=== PATIENT | male | born 1980 | race Caucasian/White ===

== ENCOUNTER 2022-08-21 16:42 | Emergency (ER) | payer OTHER, SELFPAY ==
--- NOTE | ~2022-08-21 | CT_ITS ---
EXAMINATION: NONCONTRAST HEAD CT NONCONTRAST CERVICAL SPINE CT INDICATION INFORMATION: Pain status post fall COMPARISON: None TECHNIQUE: Separate noncontrast CT examinations of the head and cervical spine were performed. Coronal and sagittal images were created for each examination at the technologist workstation. This CT examination was performed using dose optimization techniques as appropriate, variously including the following: *Automated exposure control *Adjustment of mA and/or kV according to patient size (this includes techniques or standardized protocols for targeted exams where dose is matched to indication/reason for exam; i.e. extremities or head) *Use of iterative reconstruction technique DLP: 965 mGy-cm FINDINGS: HEAD: No intra or extra-axial fluid collection, hemorrhage, or mass. No ventriculomegaly. No midline shift or herniation. Basal cisterns are patent. Torres-white matter differentiation is maintained. No territorial encephalomalacia. No significant volume loss. There is no abnormal attenuation within the brain parenchyma. No calvarial fracture or soft tissue abnormality. The mastoid air cells and visualized portions of the paranasal sinuses are well aerated. CERVICAL SPINE: Alignment: Normal. No subluxation. Vertebra: No acute fracture. No prevertebral soft tissue swelling. Degenerative disc disease: No significant. Preserved intervertebral disc heights. Other findings: No cervical lymphadenopathy. Visualized major salivary glands and thyroid gland are unremarkable. Visualized lung apices are clear. CT/CT head/brain wo IV con IMPRESSION: 1. No intracranial hemorrhage or calvarial fracture. 2. No traumatic subluxation or acute cervical spine fracture.
--- NOTE | ~2022-08-21 | CT_ITS ---
EXAMINATION: NONCONTRAST HEAD CT NONCONTRAST CERVICAL SPINE CT INDICATION INFORMATION: Pain status post fall COMPARISON: None TECHNIQUE: Separate noncontrast CT examinations of the head and cervical spine were performed. Coronal and sagittal images were created for each examination at the technologist workstation. This CT examination was performed using dose optimization techniques as appropriate, variously including the following: *Automated exposure control *Adjustment of mA and/or kV according to patient size (this includes techniques or standardized protocols for targeted exams where dose is matched to indication/reason for exam; i.e. extremities or head) *Use of iterative reconstruction technique DLP: 965 mGy-cm FINDINGS: HEAD: No intra or extra-axial fluid collection, hemorrhage, or mass. No ventriculomegaly. No midline shift or herniation. Basal cisterns are patent. Torres-white matter differentiation is maintained. No territorial encephalomalacia. No significant volume loss. There is no abnormal attenuation within the brain parenchyma. No calvarial fracture or soft tissue abnormality. The mastoid air cells and visualized portions of the paranasal sinuses are well aerated. CERVICAL SPINE: Alignment: Normal. No subluxation. Vertebra: No acute fracture. No prevertebral soft tissue swelling. Degenerative disc disease: No significant. Preserved intervertebral disc heights. Other findings: No cervical lymphadenopathy. Visualized major salivary glands and thyroid gland are unremarkable. Visualized lung apices are clear. CT/CT cervical spine wo IV con IMPRESSION: 1. No intracranial hemorrhage or calvarial fracture. 2. No traumatic subluxation or acute cervical spine fracture.
--- NOTE | ~2022-08-21 | CT_ITS ---
EXAMINATION: CT CHEST, ABDOMEN AND PELVIS WITHOUT CONTRAST. CLINICAL INFORMATION: Reason for Exam fall down stairs chest trauma, PAIN . COMPARISON: No pertinent prior studies are available for comparison. TECHNIQUE: Multidetector volumetric imaging was performed from the thoracic inlet through the pubic symphysis. During the test injection, the patient's IV infiltrated and the patient refused additional access. The exam was therefore performed without IV contrast. Oral contrast: None Intravenous contrast: Test injection of Omnipaque 350 No contrast reaction reported Sagittal and coronal reformatted images were obtained on the technologist workstation. This CT examination was performed using dose optimization techniques as appropriate, variously including the following: *Automated exposure control *Adjustment of mA and/or kV according to patient size (this includes techniques or standardized protocols for targeted exams where dose is matched to indication/reason for exam; i.e. extremities or head) *Use of iterative reconstruction technique Total exam dose-length product 253 mGy-cm FINDINGS: CHEST: VASCULAR: The aorta is normal; no evidence of dissection, aneurysm, or traumatic aortic injury. The central pulmonary arteries enhance normally. AORTIC ISTHMUS: Normal. MEDIASTINUM: No mediastinal fluid or hematoma. No hilar or mediastinal lymphadenopathy. LUNG: No nodules, mass, or focal consolidation. PLEURA: No pleural effusion. No pneumothorax. No pleural mass or thickening. CHEST WALL/AXILLA: Unremarkable. ABDOMEN/PELVIS : LIVER : The liver is normal in size, shape, and attenuation. No focal hepatic lesion or biliary ductal dilatation is present. GALLBLADDER, AND BILIARY TREE The gallbladder is unremarkable with no evidence of radiopaque gallstones, gallbladder wall thickening, or obvious pericholecystic inflammatory changes. PANCREAS: Normal; no mass or surrounding fluid. SPLEEN: Spleen is mildly enlarged at 13.6 cm. ADRENAL GLANDS: Normal; no mass. KIDNEYS AND URETERS: The kidneys are normal in size, shape, and attenuation. No hydronephrosis, hydroureter, or calculi. URINARY BLADDER: No focal mass or wall thickening seen. No bladder calculi. GASTROINTESTINAL TRACT: Moderate high density stool burden is present throughout the colon. Stomach and small bowel non-dilated. No colonic wall thickening or pericolonic inflammatory changes. Normal appendix containing high density material. VASCULAR STRUCTURES: There is no evidence of aortic or iliac injury. The inferior vena cava is intact. ACTIVE BLEEDING: No hematoma seen LYMPH NODES: No lymphadenopathy. The aorta is unremarkable. PELVIC VISCERA: Unremarkable. FREE FLUID: None. ABDOMINAL WALL: No significant hernia is appreciated. OSSEOUS STRUCTURES : No clavicle or scapula fracture. No displaced rib fracture seen. No sternal fracture seen. Normal sagittal alignment of the thoracic and lumbar spine. Vertebral body and disc heights are maintained; no compression fracture. Posterior elements intact. No sacral or pelvic fracture, The visualized hips are intact. CT/CT abdomen pelvis wo IV con IMPRESSION: 1. No evidence of a traumatic injury in the chest, abdomen or pelvis. 2. Incidental note made of mild splenomegaly and moderate stool burden in the colon.
--- NOTE | 2022-08-21 16:55 | ED_ITS ---
HPI - Fall General Chief Complaint: Fall Stated Complaint: fall down stairs neck/back pain ? allergic rx Time Seen by Provider: 08/21/22 17:02 Source: patient and EMS Mode of arrival: EMS Limitations: no limitations History of Present Illness HPI Narrative: 42-year-old male history of substance abuse on Suboxone, cirrhosis, prostate issues presenting to the emergency complaints of status post adverse drug reaction just prior to arrival. Patient today was his 1st day taking citalopram which is a new medication for him prescribed by his addiction medicine provider, after taking the medication he felt weak, he felt like his extremities were all twitching, he felt like his lower extremities were given you exam, he reports he started feeling somewhat lightheaded, went down the stairs fell down about 15 stairs, hitting his head and neck, unsure if he lost consciousness per EMS he did lose consciousness for 20 seconds as he reported to them however he denies this. Patient tells me he is not on blood thinners. Currently denies medical complaints. Alert, awake, oriented x4. GCS of 15. NIH stroke scale 0 Related Data Allergies Allergy/AdvReac Type Severity Reaction Status Date / Time Unable to Assess Allergy Unverified 08/21/22 16:46 Review of Systems Review of Systems: Constitutional : No Weight loss, No Fever, No Chills, No Fatigue, No Malaise ENT/Mouth : No sore throat, No Rhinorrhea Eyes: No Eye Pain, No Swelling, No Redness Cardiovascular : No Chest Pain, No SOB, No Dyspnea on Exertion, No Orthopnea, No Edema, No Palpitations Respiratory : No Cough, No Sputum, No Wheezing Gastrointestinal : No Nausea, No Vomiting, No Diarrhea, No Constipation, No abdominal Pain, No Hematochezia, No Melena Genitourinary : No Dysuria, No Urinary Frequency, No Hematuria, Musculoskeletal : No joint pain, No Myalgias, No Joint Swelling Skin : No Skin Lesions, No rash Neuro : No Weakness, No Numbness, No Dizziness, No Headache Psych : No Anxiety/Panic, No Depression All other systems reviewed and are negative Yes all other systems are reviewed and are negative [facility] Past Medical History Attestation statement: The following information was validated with the patient. Source: old records reviewed and nursing notes reviewed Social History Social History Advance Directives: No Advance Directives Information Provided: No Physical Exam Vital Signs: Vital Signs: Last Vital Signs Temp 98.0 F 08/21/22 21:48 Pulse 62 08/21/22 21:48 Resp 16 08/21/22 21:48 BP 120/71 08/21/22 21:48 Pulse Ox 97 08/21/22 21:48 O2 Del Method 08/21/22 21:48 BMI result Body Mass Index 24.3 Vital signs stable Appearance: Alert.? Oriented X3.? No acute distress.? Head: Normocephalic, atraumatic, no step-offs or deformities Eyes: Pupils equal, round and reactive to light.? ENT: Pharynx normal.? Neck: Normal inspection.? Neck supple.? Patient's cervical collar however no midline tenderness. CVS: Normal heart rate and rhythm.? Pulses normal.? Respiratory: No respiratory distress.? Breath sounds normal.? Abdomen: Soft and nontender.? Skin: Skin warm and dry.? Normal skin color.? Normal skin turgor.? Extremities: No lower extremity edema.? No calf ttp. 5/5 strength to bilateral upper and lower extremities Neuro: Oriented X 3.? No motor deficit.? No sensory deficit. CN 2-12 intact . Normal ertisl-tx-elwi, cadz-gv-hhil, steady tandem gait. Course Reevaluation(s) Reevaluation #1: Patient difficult stick, multiple nursing staff and checks of tried however unsuccessful. Time: 19:55 Reevaluation #2: Patient went to CT scan, they attempted to do a CT scan with contrast however line infiltrated, patient refusing another line. Patient allowing scans of there is no contrast. At this time will proceed to do CT scan without contrast. CBC with leukopenia, slight normocytic anemia, chemistry with no acute electrolyte abnormalities requiring intervention. Coags no acute findings requiring intervention. COVID negative. Scans pending at this time. Time: 20:59 Reevaluation #3: Cervical spine and head CT with no acute findings. Patient anxious to get out here, tells me he is feeling better. Reporting he is having some slight pain which prior to reports this pain is chronic in nature however unchanged after fall. Denies numbness, tingling, saddle paresthesias, urinary/bowel incon tinence/retention, unlikely cauda equina or epidural abscess. Patient ambulating with steady gait without difficulty normal coordination. Other scans pending at this time. Time: 22:12 Additional Reevaluation(s): 1019 CT of the abdomen and pelvis with no acute findings, no traumatic injuries identified in the chest, abdomen or pelvis, incidental note made of splenomegaly, moderate stool burden, attached these results to patient's discharge. Advised to return with any new or worsening symptoms. Educated on post concussive syndrome. At this time I feel comfortable to discharge home with prompt PCP follow-up. Comfortable discharge at time of discharge patient ambulating with steady gait, normal coordination and without difficulties. No new medical complaints at this time. MDM - Fall MDM Narrative Medical decision making narrative: 357 42-year-old male presents status post fall downstairs, unsure loss of consc iousness, not on blood thinners. Denies medical complaints at this time. Contributes this to an adverse drug reaction of citalopram Physical exam time. NIH stroke scale 0. GCS of 15. No evidence of flail chest, pneumothorax, unlikely intracranial hemorrhage, posterior stroke. Plan at this time is narvaez scan as patient did fall down a good number of stairs, basic labs, INR. Will leave patient's cervical collar until he is cleared. Medical Records Attestation: I reviewed the patient's medical records. Lab Data Attestation: I reviewed the patient's lab results. Result diagrams: 08/21/22 20:01 08/21/22 20:01 Labs: Lab Results 08/21/22 08/21/22 08/21/22 Range/Units 19:01 20:01 20:01 WBC 4.2 L (4.8-10.8) X10*3/uL RBC 4.38 L (4.60-5.80) X10*6/uL Hgb 13.3 L (14.0-18.0) g/dl Hct 39.6 L (42.0-52.0) % MCV 90.4 (80.0-98.0) fL MCH 30.4 (27.0-33.0) pg MCHC 33.6 (31.0-36.0) g/dl RDW 12.6 (11.0-16.0) % Plt Count 90 L (160-400) X10*3/uL MPV 12.0 (9.4-12.4) fL Immature Gran % (Auto) 0.2 (0.0-0.4) % Neut % (Auto) 61.5 (45-73) % Lymph % (Auto) 31.3 (20-40) % Claiborne % (Auto) 6.3 (2-11) % Eos % (Auto) 0.2 (0-4) % Baso % (Auto) 0.5 (0-2) % Lymph # (Auto) 1.3 (1.2-4.9) X10*3/uL Claiborne # (Auto) 0.3 (0.1-1.2) X10*3/uL Eos # (Auto) 0.0 (0.0-0.4) X10*3/uL Baso # (Auto) 0.0 (0.0-0.2) X10*3/uL Abs Immat Gran (auto) 0.01 (0.00-0.03) X10*3/uL Absolute Neuts (auto) 2.6 (2.0-8.3) x10*3/uL Absolute Nucleated RBC 0.000 (0.0-0.012) X10*3/uL Nucleated RBC % (auto) 0.0 (0.0-0.2) /100WBC PT 14.9 H (10.0-13.1) SEC INR 1.3 H (0.9-1.1) Sodium (135-145) mmol/L Potassium (3.3-5.1) mmol/L Chloride (96-108) mmol/L Carbon Dioxide (22-29) mmol/L Anion Gap (12-20) BUN (9-16) mg/dL Creatinine (0.5-1.4) mg/dL Estim Creat Clear Calc Estimated GFR Random Glucose (60-115) mg/dL Calcium (8.4-10.2) mg/dL Total Bilirubin (0.0-1.0) mg/dL AST (5-37) U/L ALT (0-40) U/L Alkaline Phosphatase (39-117) U/L Total Protein (6.5-8.0) g/dL Albumin (3.5-5.0) g/dL COVID-19 (TREV) Negative (Negative) COVID-19 Clin Com See Note 08/21/22 Range/Units 20:01 WBC (4.8-10.8) X10*3/uL RBC (4.60-5.80) X10*6/uL Hgb (14.0-18.0) g/dl Hct (42.0-52.0) % MCV (80.0-98.0) fL MCH (27.0-33.0) pg MCHC (31.0-36.0) g/dl RDW (11.0-16.0) % Plt Count (160-400) X10*3/uL MPV (9.4-12.4) fL Immature Gran % (Auto) (0.0-0.4) % Neut % (Auto) (45-73) % Lymph % (Auto) (20-40) % Claiborne % (Auto) (2-11) % Eos % (Auto) (0-4) % Baso % (Auto) (0-2) % Lymph # (Auto) (1.2-4.9) X10*3/uL Claiborne # (Auto) (0.1-1.2) X10*3/uL Eos # (Auto) (0.0-0.4) X10*3/uL Baso # (Auto) (0.0-0.2) X10*3/uL Abs Immat Gran (auto) (0.00-0.03) X10*3/uL Absolute Neuts (auto) (2.0-8.3) x10*3/uL Absolute Nucleated RBC (0.0-0.012) X10*3/uL Nucleated RBC % (auto) (0.0-0.2) /100WBC PT (10.0-13.1) SEC INR (0.9-1.1) Sodium 140 (135-145) mmol/L Potassium 4.1 (3.3-5.1) mmol/L Chloride 103 (96-108) mmol/L Carbon Dioxide 28 (22-29) mmol/L Anion Gap 13 (12-20) BUN 18 H (9-16) mg/dL Creatinine 0.94 (0.5-1.4) mg/dL Estim Creat Clear Calc 101.0 Estimated GFR > 60 Random Glucose 122 H (60-115) mg/dL Calcium 9.2 (8.4-10.2) mg/dL Total Bilirubin 0.4 (0.0-1.0) mg/dL AST 16 (5-37) U/L ALT 11 (0-40) U/L Alkaline Phosphatase 47 (39-117) U/L Total Protein 7.1 (6.5-8.0) g/dL Albumin 4.4 (3.5-5.0) g/dL COVID-19 (TREV) (Negative) COVID-19 Clin Com Critical Care Time Critical Care Time Critical Care Time: No Discharge Plan Discharge Clinical Impression: Fall, Concussion, Adverse drug reaction Patient Disposition: Home, Self-Care Instructions: Concussion (ED), Post Concussion Syndrome (ED), Fall Prevention (ED) Additional Instructions: Take your medications as prescribed. If you were prescribed antibiotics today, it is important that you take your medication to their entirety, do not skip any doses, do not finish them early. Follow-up with your primary care provider this week. Return to the emergency department with new or worsening symptoms. Such as fevers, chills, chest pain, shortness of breath, nausea, vomiting, dizziness, headache, vision changes, lethargy, altered mental status, weakness. In case of emergency call 911 Please stop taking her citalopram and follow-up with your prescriber to see if there is an alternative medication. Please read the handout about post concussive syndrome, I did educate you on worrisome signs and symptoms and when to return if any of these arise please return. Rest your brain, limit screen time, please do not participate in sports for at least 2-3 weeks until medically cleared. If you experience headache or any pain you can take ibuprofen every 6 hours, Tylenol every 4 as needed for pain or discomfort. CT/CT head/brain & cervical spine wo IV con IMPRESSION: 1.? No intracranial hemorrhage or calvarial fracture. 2.? No traumatic subluxation or acute cervical spine fracture. ? CT/CT abdomen pelvis wo IV con IMPRESSION: 1.? No evidence of a traumatic injury in the chest, abdomen or pelvis. 2.? Incidental note made of mild splenomegaly and moderate stool burden in the colon. ? Referrals: Physician,Unknown J [Primary Care Provider] - 2 days Stand Alone Forms: Work/School Release
[2022-08-21 17:05] VITALS: BP 103/60; BP 126/62; PULSE 66; PULSE 70; RESP 18; TEMP 35.9; O2SAT 95; O2SAT 96; BMI 24.3
--- OUTSIDE RECORDS SUMMARY | 2022-08-21 18:11 | XMS_ITS | Continuity of Care Document ---
:1980 Author Organization [facility] Address [address] [place] [address]- Care Team Providers Name Role Phone Petr Gutierrez MD, Joss Primary Care Physician Encounter [facility] Date(s): 01/03/21 - 02/02/[address] [address]- Attending Physician: Liliana France Admitting Physician: Liliana France Referring Physician: AdmtrLiliana Allergies, Adverse Reactions, Alerts Substance Reaction Severity Status penicillins Active Bactrim Active Immunizations Given and Recorded Vaccine Date Status Refusal Reason influenza virus vaccine, inactivated 01/03/21 Given influenza virus vaccine, inactivated1 08/07/19 Recorded influenza virus vaccine, inactivated2 07/29/18 Given influenza virus vaccine, inactivated 09/12/17 Given tetanus/diphtheria/pertussis, acel(Tdap)3 07/29/18 Given hepatitis B adult vaccine4 06/02/18 Given hepatitis B adult vaccine 04/01/18 Given hepatitis B adult vaccine 09/12/17 Given Hepatitis A Adult Vaccine 04/01/18 Given Hepatitis A Adult Vaccine 09/12/17 Given pneumococcal 23-valent vaccine 09/12/17 Given 1Result Comment: [facility] pharmacy [place], [place] [phone] Comment: [07/29/2018] [facility] # - [id number] Comment: [07/29/2018] [facility]#-[id number] 4Result Comment: [06/02/2018] 3 of 3 Medications Colace sodium 50 mg oral capsule 1 capsule = 50 mg, By Mouth, 2 times a day, PRN for constipation, # 180 capsule, 0 Refills, Maintenance, 07/14/17 15:37:33, Capsule Start Date: 07/14/17 Status: Orderedhepatitis A adult vaccine 50 u/ml intramuscular solution See Instructions, 1 mL give Intramuscular x 2 doses Given 0 - 6 months, # 1 each, 0 Refills, Soft Stop, 09/12/17 10:15:41, Suspension Start Date: 09/12/17 Status: Orderedhepatitis B adult vaccine 20 mcg/mL intramuscular suspension See Instructions, 20 mcg/mL Intramuscular x 3 doses Given 0 - 1 - 6 months, # 1 each, 1 Refills, Acute, 09/12/17 10:15:28, Suspension Start Date: 09/12/17 Status: OrderedVitamin B12 1000 mcg oral tablet 1 tablet = 1,000 mcg, By Mouth, Daily, # 30 tablet, 3 Refills, Maintenance, 04/20/19 12:34:53 EDT, Tablet Start Date: 04/20/19 Stop Date: 08/18/19 Status: Ordered Problem List Condition Effective Dates Status Health Status Informant Herpes genitalis in men(Confirmed) Active History of hepatitis C(Confirmed) Active Neuropathy(Confirmed) Active Portal hypertension(Confirmed) Active Thoracic back pain(Confirmed) Active Social History Social History Type Response Smoking Status Former smoker; Other: vapes; entered on: 04/07/18 Sex
--- OUTSIDE RECORDS SUMMARY | 2022-08-21 18:11 | XMS_ITS | Continuity of Care Document ---
:1980 Author Hub Preferred Language Palestinian Marital Status Life Partner Yazdanism Affiliation Tenriism Race Unknown Ethnic Group Not or Author Organization [facility] Address [address] [place] [address]- Care Team Providers Name Role Phone Petr Gutierrez MD, Joss Primary Care Physician Encounter [facility] Date(s): 05/28/22 - 06/27/[address] [address]- Allergies, Adverse Reactions, Alerts Substance Reaction Severity Status penicillins Active Bactrim Active Immunizations Given and Recorded Vaccine Date Status Refusal Reason SARS-CoV-2 mRNA ([id number]) vax 01/19/22 Recorde d SARS-CoV-2 (COVID-19) mRNA BNT-162b2 vac 02/11/21 Recorde d SARS-CoV-2 (COVID-19) mRNA BNT-162b2 vac 01/18/21 Recorde d influenza virus vaccine, inactivated 01/03/21 Given influenza [...] pneumococcal 23-valent vaccine 09/12/17 Given 1Result Comment: [facility] pharmacy [place] [phone] Comment: [07/29/2018] [facility] # - [id number] Comment: [07/29/2018] [facility]#-[id number] 4Result Comment: [06/02/2018] 3 of 3 Medications cetirizine 10 mg oral tablet 1 tablet, By Mouth, Daily, # 30 tablet, 2 Refills, Maintenance, 06/26/22 11:28:00 EDT, [id number], 173, cm, 06/06/22 15:29:00 EDT, Height, 82, kg, 01/31/21 14:34:00 EDT, Dry Weight Start Date: 06/26/22 Status: Orderedcitalopram 20 mg oral tablet 20 mg, 1, tablet, By Mouth, Daily, Refills 0, Maintenance, 02/14/22 11:02:00 EDT, Partial fill upon patient request if the prescription is for a schedule II opioid drug. Start Date: 02/14/22 Status: OrderedColace sodium 50 mg oral capsule 1 capsule = 50 mg, By Mouth, 2 times a day, PRN for constipation, # 180 capsule, 0 Refills, Maintenance, 07/14/17 15:37:33, Capsule Start Date: 07/14/17 Status: Orderedfamotidine 20 mg oral tablet 20 mg, 1, tablet, By Mouth, 2 times a day, daily for 2 weeks, Refills 0, Maintenance, 02/14/22 12:08:00 EDT, Partial fill upon patient request if the prescription is for a schedule II opioid drug. Start Date: 02/14/22 Status: OrderedFIRST Mouthwash BLM mucous membrane suspension See Instructions, use 4 times a day as directed by your provider, # 100 mL, 0 Refills, Maintenance, 02/18/22 15:32:00 EDT, [facility]/pharmacy #[id number], Partial fill upon patient request if the prescription is for a schedule II opioid drug., use 4 times a day a... Start Date: 02/18/22 Status: Orderedgabapentin 300 mg oral capsule 1, capsule, By Mouth, 3 times a day, needs an appointment for further refills., # 90 capsule, Refills 3, Tot. Refills 3, Maintenance, 04/09/22 10:28:00 EDT, Route to Pharmacy Electronically, [facility]/pharmacy #[id number], 173, cm, 03/22/22 11:24:00 EDT, Height,... Start Date: 04/09/22 Status: Orderedhepatitis A adult vaccine 50 u/ml [...] 09/12/17 10:15:28, Suspension Start Date: 09/12/17 Status: Orderedomeprazole 40 mg oral enteric coated capsule 1 capsule = 40 mg, By Mouth, 2 times a day, for 90 days, before a meal Failed lower daily dose., # 180 capsule, 0 Refills, Hard Stop 07/27/22 12:12:00 EDT, 04/28/22 12:12:00 EDT, EC Capsule, [facility]/pharmacy #[id number], 173, cm, 03/22/22 11:24:00 EDT, Heigh... Start Date: 04/28/22 Stop Date: 07/27/22 Status: Orderedomeprazole 40 mg oral enteric coated capsule 1 capsule = 40 mg, By Mouth, Daily, before a meal Failed lower daily dose., # 90 capsule, 0 Refills,Maintenance, 07/27/22 12:12:00 EDT, EC Capsule, [facility]/pharmacy #[id number], 173, cm, 03/22/22 11:24:00 EDT, Height, 82, kg, 01/31/21 14:34:00 EDT, Dry Weight Start Date: 07/27/22 Stop Date: 10/25/22 Status: Orderedprazosin 2 mg oral capsule 1 capsule = 2 mg, By Mouth, Daily at bedtime, 0 Refills, Maintenance, 02/14/22 11:01:00 EDT, Partialfill upon patient request if the prescription is for a schedule II opioid drug. Start Date: 02/14/22 Status: OrderedSuboxone 8 mg-2 mg sublingual film 1 film, Sublingual, 3 times a day, 0 Refills, Maintenance, 04/01/18 8:57:28 EDT Start Date: 04/01/18 Status: Orderedsucralfate 1 gm oral tablet 1, tablet, By Mouth, 2 times a day, # 60 tablet, Refills 0, Maintenance, 06/26/22 11:49:00 EDT, Route to Pharmacy Electronically, [id number], 173, cm, 06/06/22 15:29:00 EDT, Height, 82, kg, 01/31/21 14:34:00 EDT, Dry Weight Start Date: 06/26/22 Status: Orderedtamsulosin 0.4 mg oral capsule 0.4 mg, 1, capsule, By Mouth, Daily, # 30 capsule, Refills 3, Tot. Refills 3, Maintenance, 12/18/20 17:19:00 EDT, [id number] Partial fill upon patient requestif the prescription is for a schedule II opioid d... Start Date: 12/18/20 Stop Date: 04/17/21 Status: OrderedViagra 25 mg oral tablet 1 tablet = 25 mg, By Mouth, Daily, 1 hour before sexual activity, # 10 tablet, 0 Refills, Maintenance, 06/23/20 15:45:00 EDT, Tablet, [facility]/pharmacy #[id number], 173, cm, 06/23/20 15:16:00 EDT, Height Start Date: 06/23/20 Stop Date: 07/23/20 Status: OrderedVitamin B12 1000 mcg oral tablet 1 tablet = 1,000 mcg, By Mouth, Daily, # 30 tablet, 3 Refills, Maintenance, 04/20/19 12:34:53 EDT, Tablet Start Date: 04/20/19 Stop Date: 08/18/19 Status: Ordered Problem List Condition Effective Dates Status Health Status Informant Cirrhosis of liver(Confirmed) Active Chronic GERD(Confirmed) Active Herpes genitalis in men(Confirmed) Active History of hepatitis C(Confirmed) Active Neuropathy(Confirmed) Active Portal hypertension(Confirmed) Active Thoracic back pain(Confirmed) Active Social History Social History Type Response Smoking Status Former smoker; Other: vapes; entered on: 04/07/18 Sex Care Team PersonnelName: Joss Sams MD Address: [address] [place] [id number]
--- OUTSIDE RECORDS SUMMARY | 2022-08-21 18:11 | XMS_ITS | Continuity of Care Document ---
:1980 Author Organization [facility] Address [address] [place] [address]- Care Team Providers Name Role Phone Petr Gutierrez MD, Joss Primary Care Physician Encounter [facility] Date(s): 12/20/21 - 01/19/[address] [address] Allergies, Adverse Reactions, Alerts Substance Reaction Severity Status penicillins Active Bactrim Active Immunizations Given and Recorded Vaccine Date Status Refusal Reason SARS-CoV-2 (COVID-19) mRNA BNT-162b2 vac 02/11/21 Recorde [...] pneumococcal 23-valent vaccine 09/12/17 Given 1Result Comment: [facility] pharmacy [place] [phone] Comment: [07/29/2018] [facility] # - [phone] Comment: [07/29/2018] [facility]#-[id number] 4Result Comment: [06/02/2018] 3 of 3 Medications [...] History of hepatitis C(Confirmed) Active Neuropathy(Confirmed) Active Obese class I(Confirmed) Active Portal hypertension(Confirmed) Active Thoracic back pain(Confirmed) Active Social History Social History Type Response Smoking Status Never (less than 100 in life time) entered on: 01/08/22 Sex
--- OUTSIDE RECORDS SUMMARY | 2022-08-21 18:11 | XMS_ITS | Continuity of Care Document ---
:1980 Author Organization [facility] Address [address] [place] [address]- Care Team Providers Name Role Phone Petr Gutierrez MD, Joss Primary Care Physician Encounter [facility] Date(s): 10/19/20 - 11/18/20 [facility] [address] [place] [address]- Attending Physician: AdmLiliana roblero Admitting Physician: AdmtrLiliana Referring Physician: Admtr, Ar8 Allergies, Adverse Reactions, Alerts Substance Reaction Severity Status penicillins Active Immunizations Given and Recorded Vaccine Date Status Refusal Reason influenza virus vaccine, inactivated1 08/07/19 Recorded influenza virus vaccine, inactivated2 07/29/18 Given influenza virus vaccine, inactivated 09/12/17 Given tetanus/diphtheria/pertussis, acel(Tdap)3 07/29/18 Given hepatitis B adult vaccine4 06/02/18 Given hepatitis B adult vaccine 04/01/18 Given hepatitis B adult vaccine 09/12/17 Given Hepatitis A Adult Vaccine 04/01/18 Given Hepatitis A Adult Vaccine 09/12/17 Given pneumococcal 23-valent vaccine 09/12/17 Given 1Result Comment: [facility] pharmacy [place] [phone] Comment: [07/29/2018] [facility] # - [id number] Comment: [07/29/2018] [facility]#-[id number] 4Result Comment: [06/02/2018] 3 of 3 Medications [...] C(Confirmed) Active Neuropathy(Confirmed) Active Portal hypertension(Confirmed) Active Hepatitis C infection(Confirmed) Active Social History Social History Type Response Smoking Status Former smoker; Other: vapes; entered on: 04/07/18 Sex
--- OUTSIDE RECORDS SUMMARY | 2022-08-21 18:11 | XMS_ITS | Continuity of Care Document ---
:1980 Author Organization [facility] Address [address] [place] [address]- Care Team Providers Name Role Phone Petr Gutierrez MD, Joss Primary Care Physician [phone] Encounter [facility] Date(s): 03/05/22 - 04/04/[address] [address]- Allergies, Adverse Reactions, Alerts Substance Reaction Severity Status penicillins Active Bactrim Active Immunizations Given and Recorded Vaccine Date Status Refusal Reason SARS-CoV-2 mRNA ([id number]) vax 01/19/22 Recorde d SARS-CoV-2 (COVID-19) mRNA [...] vaccine 09/12/17 Given 1Result Comment: [facility] [place] [phone] Comment: [07/29/2018] [facility] # - [id number] Comment: [07/29/2018] [facility]#-[id number] 4Result Comment: [06/02/2018] 3 of 3 Medications [...]
--- OUTSIDE RECORDS SUMMARY | 2022-08-21 18:11 | XMS_ITS | Continuity of Care Document ---
:1980 Author Organization [facility] Address [address] [place] [address]- Care Team Providers Name Role Phone Petr Gutierrez MD, Joss Primary Care Physician Encounter [facility] Date(s): 09/21/20 - 10/21/[address] [facility] [address] [place] [address]- Allergies, Adverse Reactions, Alerts Substance Reaction Severity [...] pneumococcal 23-valent vaccine 09/12/17 Given 1Result Comment: [facility] [place] [phone] Comment: [07/29/2018] [facility] # - [id number] Comment: [07/29/2018] [facility]#-[id number] 4Result Comment: [06/02/2018] 3 of 3 Medications [...]
--- OUTSIDE RECORDS SUMMARY | 2022-08-21 18:11 | XMS_ITS | Continuity of Care Document ---
:1980 Author Organization [facility] Address [address] [place] [address]- Care Team Providers Name Role Phone Petr Gutierrez MD, Joss Primary Care Physician Encounter [facility] Date(s): 02/11/22 - 03/13/[address] [address]- Allergies, Adverse Reactions, Alerts Substance Reaction Severity [...] pneumococcal 23-valent vaccine 09/12/17 Given 1Result Comment: [facility] pharmacy GARRICK Forrest [phone] Comment: [07/29/2018] [facility] # - [id number] Comment: [07/29/2018] [facility]#-[id number] 4Result Comment: [06/02/2018] 3 of 3 Medications [...]
--- OUTSIDE RECORDS SUMMARY | 2022-08-21 18:11 | XMS_ITS | Continuity of Care Document ---
:1980 Author Organization [facility] Address [address] [place] [address]- Care Team Providers Name Role Phone Petr Gutierrez MD, Joss Primary Care Physician Encounter [facility] Date(s): 11/27/20 - 11/28/[address] [address]- Encounter Diagnosis Chest pain (Final) - 11/28/20 Discharge Disposition: A-D/C Home Attending Physician: Justin Moralez MD Admitting Physician: Justin Moralez MD Referring Physician: Not on Staff, Referring MD Allergies, Adverse Reactions, Alerts Substance Reaction Severity [...] pneumococcal 23-valent vaccine 09/12/17 Given 1Result Comment: [facility] pharmacy GARRICK Parsons [phone] Comment: [07/29/2018] [facility] # - [id number] Comment: [07/29/2018] [facility]#-[id number] 4Result Comment: [06/02/2018] 3 of 3 Medications ciprofloxacin 500 mg oral tablet 1 tablet = 500 mg, By Mouth, Every 12 hours, for 21 days, # 42 tablet, 0 Refills, Acute 12/17/20 8:20:00 EDT, 11/26/20 8:20:00 EST, Tablet, [facility]/pharmacy #[id number], Partial fill upon patient request if the prescription is for a schedule II opioid drug., 17... Start Date: 11/26/20 Stop Date: 12/17/20 Status: OrderedColace sodium 50 mg oral capsule [...] Portal hypertension(Confirmed) Active Hepatitis C infection(Confirmed) Active Results Radiology Reports Exam Date Time Procedure Performing Provider Status 11/28/20 12:08 AM Chest 2 Views Frontal and Lat Jaciel Martin n; Auth (Verified) Notes:(Chest 2 Views Frontal and Lat) Reason For Exam: Shortness of Breath, Fever;Other:RESULT: Chest 2 Views Frontal and Lat Chest 2 Views Frontal and Lat HISTORY: Shortness of breath and fever. CLINICAL QUESTION: Pneumonia. COMPARISON: CT 11/26/2020. FINDINGS: LINES AND TUBES: None. LUNGS AND PLEURA: Clear lungs. Normal pulmonary vascularity. No pleural effusion. No pneumothorax. HEART, MEDIASTINUM AND RADHAMES: Heart is normal in size. Normal upper mediastinal and hilar contour. BONES AND SOFT TISSUES: No acute abnormality. IMPRESSION: Normal. I have personally reviewed the images and I agree with this report. WSN: [id number] Ordering Physician: Moise Payan Dictated By: Chidi Schaeffer MD Dictated Date/Time: 11/28/20 8:32 am Reviewed By: Edgar Rdz MD Signed By: Edgar Rdz MD Signed Date/Time: 11/28/20 8:37 am Transcribed By: RINA Transcribed Date/Time: 11/28/20 8:21 am Vital Signs Most recent to oldest 1 2 3 [Reference Range]: Oxygen Saturation [94-100 %] 95 % 98 % 98 % (11/28/20 6:26 AM) (11/28/20 5:06 AM) (11/28/20 3:1 3 AM) Pulse Rate [55-90 bpm] 64 bpm 65 bpm 78 bpm (11/28/20 6:26 AM) (11/28/20 5:06 AM) (11/28/20 3:1 3 AM) Blood Pressure [90-138/55-84 115/60 mm Hg 106/62 mm Hg 102 /54 mm Hg mm Hg] (11/28/20 6:26 AM) (11/28/20 5:06 AM) (11/28/20 3:1 3 AM) Respiratory Rate [16-30 18 br/min 18 br/min 18 br/mi n br/min] (11/28/20 6:26 AM) (11/28/20 5:06 AM) (11/28/20 3:1 3 AM) Temperature [96.8-100.4 DegF] 97.9 DegF 98.5 DegF (11/28/20 5:06 AM) (11/27/20 11:20 PM) Mode of Delivery (Oxygen) Room air Room air Room a ir (11/28/20 6:26 AM) (11/28/20 5:06 AM) (11/28/20 3:1 3 AM) Blood pressure sites Arm, left Arm, left Arm, left (11/28/20 6:26 AM) (11/28/20 5:06 AM) (11/27/20 11: 20 PM) Temperature Route Oral Oral (11/28/20 5:06 AM) (11/27/20 11:20 PM) Social History Social History Type Response Smoking Status Former smoker; Other: vapes; entered on: 04/07/18 Sex
--- OUTSIDE RECORDS SUMMARY | 2022-08-21 18:11 | XMS_ITS | Continuity of Care Document ---
:1980 Author Organization [facility] Address [address] [place] [address]- Care Team Providers Name Role Phone Petr Gutierrez MD, Joss Primary Care Physician Encounter [facility] Date(s): 07/04/22 - 07/04/[address] [address]- Discharge Disposition: A-D/C Walkout Attending Physician: Not on Staff, Attending MD Admitting Physician: Not on Staff, Admitting MD Referring Physician: Not on Staff, Referring MD Allergies, Adverse Reactions, Alerts Substance Reaction Severity Status penicillins Active Bactrim Active Immunizations Given and Recorded Vaccine Date Status Refusal Reason SARS-CoV-2 mRNA (vijtxqv-vlkz-atwpw) vax 01/19/22 Recorde d SARS-CoV-2 (COVID-19) mRNA [...] pneumococcal 23-valent vaccine 09/12/17 Given 1Result Comment: [facility] pharmacy GARRICK Forrest [phone] Comment: [07/29/2018] [facility] # - [id number] Comment: [07/29/2018] [facility]#-[id number] 4Result Comment: [06/02/2018] 3 of 3 Medications cetirizine 10 mg oral tablet 1 tablet, By Mouth, Daily, # 30 tablet, 2 Refills, Maintenance, 06/26/22 11:28:00 EDT, [id number], 173, cm, 06/06/22 15:29:00 EDT, Height, 82, [...] mL, 0 Refills, Maintenance, 02/18/22 15:32:00 EDT, [id number], Partial fill upon patient request if the prescription is for a schedule II opioid drug., use 4 times a day a... Start Date: 02/18/22 Status: Orderedgabapentin 300 mg oral capsule 1, capsule, By Mouth, 3 times a day, needs an appointment for further refills., # 90 capsule, Refills 3, Tot. Refills 3, Maintenance, 04/09/22 10:28:00 EDT, Route to Pharmacy Electronically, [facility]/pharmacy #[id number], 173, cm, 03/22/22 11:24:00 EDT, Height,... Start [...] Orderedomeprazole 40 mg oral enteric coated capsule See Instructions, TAKE 1 CAPSULE BY MOUTH EVERY DAY BEFORE MEAL, # 90 capsule, 0 Refills, Maintenance, 06/29/22 22:18:00 EDT, [facility], 173, cm, 06/06/22 15:29:00 EDT, Height, 82, kg, 01/31/21 14:34:00 EDT, Dry Weight Start Date: 06/29/22 Status: Orderedprazosin 2 mg oral capsule 1 [...] 06/26/22 11:49:00 EDT, Route to Pharmacy Electronically, [id number], 173, cm, 06/06/22 15:29:00 EDT, Height, 82, kg, 01/31/21 14:34:00 EDT, Dry Weight Start Date: 06/26/22 Status: Orderedtamsulosin 0.4 mg oral capsule 0.4 mg, 1, capsule, By Mouth, Daily, # 30 capsule, Refills 3, Tot. Refills 3, Maintenance, 12/18/20 17:19:00 EDT, [id number] fill upon patient requestif the prescription is for a schedule II opioid d... Start Date: 12/18/20 Stop Date: 04/17/21 Status: OrderedViagra 25 mg oral tablet 1 tablet = 25 mg, By Mouth, Daily, 1 hour before sexual activity, # 10 tablet, 0 Refills, Maintenance, 06/23/20 15:45:00 EDT, Tablet, [facility]/pharmacy #[id number], 173, cm, 06/23/20 15:16:00 EDT, Height Start Date: 06/23/20 Stop Date: 07/23/20 Status: OrderedVitamin B12 1000 mcg oral tablet 1 tablet = 1,000 mcg, By Mouth, Daily, # 30 tablet, 3 Refills, Maintenance, 04/20/19 12:34:53 EDT, Tablet Start Date: 04/20/19 Stop Date: 08/18/19 Status: Ordered Problem List Condition Confirmation Course Effective Dates Status Health Stat us Informant Cirrhosis of liver Confirmed Active Chronic GERD Confirmed Active Herpes genitalis in Confirmed Active men History of Confirmed Active hepatitis C Neuropathy Confirmed Active Portal hypertension Confirmed Active Thoracic back pain Confirmed Active Vital Signs Most recent to oldest 1 2 3 [Reference Range]: Oxygen Saturation [94-100 %] 99 % 97 % 98 % (07/04/22 5:30 PM) (07/04/22 3:01 PM) (07/04/22 2:5 5 PM) Pulse Rate [55-90 bpm] 57 bpm 61 bpm 69 bpm (07/04/22 5:30 PM) (07/04/22 3:01 PM) (07/04/22 2:5 5 PM) Blood Pressure [90-138/55-84 mm 99/56 mm Hg 114/66 mm Hg Hg] (07/04/22 5:30 PM) (07/04/22 3:01 PM) Respiratory Rate [16-30 br/min] 21 br/min (07/04/22 3:01 PM) Temperature [96.8-100.4 DegF] 98.1 DegF 98.0 DegF (07/04/22 5:30 PM) (07/04/22 3:01 PM) Mode of Delivery (Oxygen) Room air Room air Room a ir (07/04/22 5:30 PM) (07/04/22 3:01 PM) (07/04/22 2:5 5 PM) Blood pressure sites Arm, right Arm, right (07/04/22 5:30 PM) (07/04/22 3:01 PM) Temperature Route Oral Oral (07/04/22 5:30 PM) (07/04/22 3:01 PM) Social History Social History Type Response Smoking Status Former smoker; Other: vapes; entered on: 04/07/18 Sex Patient Care team information PersonnelName: Petr Gutierrez MD, Joss Address: Address: [address] [place] [address], [place] [address]
--- OUTSIDE RECORDS SUMMARY | 2022-08-21 18:11 | XMS_ITS | Continuity of Care Document ---
:1980 Author Organization [facility] Address [address] [place] [address]- Care Team Providers Name Role Phone Joss Sams MD Primary Care Physician [id number] Date(s): 01/18/20 - 02/18/[address] [address]- [facility] Encounter Diagnosis Allergic rhinitis (Discharge Diagnosis) - 01/19/20 Attending Physician: Joss Sams MD Allergies, Adverse Reactions, Alerts Substance Reaction [...] pneumococcal 23-valent vaccine 09/12/17 Given 1Result Comment: [facility] pharmacy GARRICK Forrest [phone] Comment: [07/29/2018] [facility] # - [id number] Comment: [07/29/2018] [facility]#-[id number] 4Result Comment: [06/02/2018] 3 of 3 Medications Colace sodium 50 mg oral capsule 1 capsule = 50 mg, By Mouth, 2 times a day, PRN for constipation, # 180 capsule, 0 Refills, Maintenance, 10/09/17 15:37:33, Capsule Start Date: 07/14/17 Status: OrderedFLUoxetine 20 mg oral capsule 20 mg, 1, capsule, By Mouth, Daily, # 60 capsule, Refills 0, Maintenance, 06/22/17 12:14:56 Start Date: 06/22/17 Status: Orderedhepatitis A adult vaccine 50 u/ml [...] Status Informant Herpes genitalis in men(Confirmed) Active Hepatitis C infection(Confirmed) Active Diagnosis Diagnosis Type Effective Dates Health Status Clinical In formant Service Allergic Discharge 01/19/20 rhinitis Diagnosis Social History Social History Type Response Smoking Status Former smoker; Other: vapes; entered on: 04/07/18 Sex
--- OUTSIDE RECORDS SUMMARY | 2022-08-21 18:11 | XMS_ITS | Continuity of Care Document ---
:1980 Author Organization [facility] Address [address] [place] [address]- Care Team Providers Name Role Phone Petr Gutierrez MD, Joss Primary Care Physician Encounter [facility] Date(s): 05/29/21 - 06/28/[address] [address]- Attending Physician: Liliana France Admitting Physician: Liliana [...] 23-valent vaccine 09/12/17 Given 1Result Comment: [facility] pharmacy [place], [place] [phone] Comment: [07/29/2018] [facility] # - [id number] Comment: [07/29/2018] [facility]#-[id number] 4Result Comment: [06/02/2018] 3 of 3 Medications [...] Start Date: 04/20/19 Stop Date: 08/18/19 Status: OrderedZyrTEC 10 mg oral tablet 1 tablet = 10 mg, By Mouth, Daily, # 90 tablet, 1 Refills, Maintenance, 03/22/21 12:37:00 EDT, Tablet, [facility]/pharmacy #[id number], 173, cm, 01/31/21 14:34:00 EDT, Height, 82, kg, 01/31/21 14:34:00 EDT, Dry Weight Start Date: 03/22/21 Stop Date: 09/18/21 Status: Ordered Problem List Condition Effective Dates Status Health Status Informant Herpes genitalis in men(Confirmed) Active History of hepatitis C(Confirmed) Active Neuropathy(Confirmed) Active Portal hypertension(Confirmed) Active Thoracic back pain(Confirmed) Active Social History Social History Type Response Smoking Status Former smoker; Other: vapes; entered on: 04/07/18 Sex
--- OUTSIDE RECORDS SUMMARY | 2022-08-21 18:12 | XMS_ITS | Continuity of Care Document ---
:1980 Author Organization [facility] Address [address] [place] [address]- Care Team Providers Name Role Phone Petr Gutierrez MD, Joss Primary Care Physician Encounter [facility] Date(s): 05/31/22 - 06/30/[address] [address]- Allergies, Adverse Reactions, Alerts Substance Reaction Severity Status penicillins Active Bactrim Active Immunizations Given and Recorded Vaccine Date Status Refusal Reason SARS-CoV-2 mRNA ([id number]) vax 01/19/22 Recorde d SARS-CoV-2 (COVID-19) mRNA [...] [facility] pharmacy GARRICK Forrest [phone] Comment: [07/29/2018] [facility] # - [id number] Comment: [07/29/2018] [facility]#-[id number] 4Result Comment: [06/02/2018] 3 of 3 Medications cetirizine 10 mg oral tablet 1 tablet, By Mouth, Daily, # 30 tablet, 2 Refills, Maintenance, 06/26/22 11:28:00 EDT, [facility], 173, cm, 06/06/22 15:29:00 EDT, Height, 82, [...] mL, 0 Refills, Maintenance, 02/18/22 15:32:00 EDT, [facility]/pharmacy #[id number], Partial fill upon patient request if the prescription is for a schedule II opioid drug., use 4 times a day a... Start Date: 02/18/22 Status: Orderedgabapentin 300 mg oral capsule 1, capsule, By Mouth, 3 times a day, needs an appointment for further refills., # 90 capsule, Refills 3, Tot. Refills 3, Maintenance, 04/09/22 10:28:00 EDT, Route to Pharmacy Electronically, [facility]/pharmacy #[id number], 173, cm, 03/22/22 11:24:00 EDT, Height,... [...] capsule, 0 Refills, Maintenance, 06/29/22 22:18:00 EDT, [facility], 173, cm, 06/06/22 15:29:00 EDT, Height, 82, [...] EDT, Route to Pharmacy Electronically, [facility], 173, cm, 06/06/22 15:29:00 EDT, Height, 82, kg, 01/31/21 14:34:00 EDT, Dry Weight Start Date: 06/26/22 Status: Orderedtamsulosin 0.4 mg oral capsule 0.4 mg, 1, capsule, By Mouth, Daily, # 30 capsule, Refills 3, Tot. Refills 3, Maintenance, 12/18/20 17:19:00 EDT, Route to Pharmacy Electronically, [facility]/pharmacy #[id number], Partial fill upon patient requestif the prescription is for a schedule II opioid d... Start Date: 12/18/20 Stop Date: 04/17/21 Status: OrderedViagra 25 mg oral tablet 1 tablet = 25 mg, By Mouth, Daily, 1 hour before sexual activity, # 10 tablet, 0 Refills, Maintenance, 06/23/20 15:45:00 EDT, Tablet, [facility]/pharmacy #[id number], 173, cm, 06/23/20 15:16:00 EDT, Height [...] Care Team PersonnelName: Joss Sams MD Address: [address] [place] [id number]
--- OUTSIDE RECORDS SUMMARY | 2022-08-21 18:12 | XMS_ITS | Continuity of Care Document ---
:1980 Author Organization [facility] Address [address] [place] [address]- Care Team Providers Name Role Phone Petr Gutierrez MD, Joss Primary Care Physician [phone] Encounter [facility] Date(s): 09/25/21 - 10/25/[address] [address]- Allergies, Adverse Reactions, Alerts Substance Reaction Severity [...] vaccine 09/12/17 Given 1Result Comment: [facility] pharmacy GARRICK Forrest [phone] Comment: [07/29/2018] [facility] # - [id number] Comment: [07/29/2018] [facility]#-[id number] 4Result Comment: [06/02/2018] 3 of 3 Medications [...] Maintenance, 03/22/21 12:37:00 EDT, Tablet, [facility]/pharmacy #[id number], 173, cm, 01/31/21 14:34:00 EDT, Height, [...]
--- OUTSIDE RECORDS SUMMARY | 2022-08-21 18:12 | XMS_ITS | Continuity of Care Document ---
:1980 Author Organization [facility] Address [address] [place] [address]- Care Team Providers Name Role Phone Petr Gutierrez MD, Joss Primary Care Physician Encounter [facility] Date(s): 12/04/20 - 01/03/[address] [address]- Allergies, Adverse Reactions, Alerts Substance Reaction Severity [...] pneumococcal 23-valent vaccine 09/12/17 Given 1Result Comment: [facility] [place], [place] [phone] Comment: [07/29/2018] [facility] # - [id number] Comment: [07/29/2018] [facility]#-[id number] 4Result Comment: [06/02/2018] 3 of 3 Medications [...]
--- OUTSIDE RECORDS SUMMARY | 2022-08-21 18:12 | XMS_ITS | Continuity of Care Document ---
:1980 Author Organization [facility] Kamla Bailey [facility] Address [address] [place] [address]- Care Team Providers Name Role Phone Petr Gutierrez MD, Joss Primary Care Physician [phone] Encounter [facility] Date(s): 12/05/20 - 12/12/20 [facility] Kamla Bailey [facility] [address] [place] [address]- Attending Physician: Sonia Kovacs MD Allergies, Adverse Reactions, Alerts Substance Reaction [...] pneumococcal 23-valent vaccine 09/12/17 Given 1Result Comment: [facility] pharmacy GARRICK Parsons [phone] Comment: [07/29/2018] [facility] # - [id number] Comment: [07/29/2018] [facility]#-[id number] 4Result Comment: [06/02/2018] 3 of 3 Medications ciprofloxacin 500 mg oral tablet 1 tablet = 500 mg, By Mouth, Every 12 hours, for 21 days, # 42 tablet, 0 Refills, Acute 12/17/20 8:20:00 EDT, 11/26/20 8:20:00 EST, Tablet, [facility]/pharmacy #[id number], Partial fill upon patient request [...]
--- OUTSIDE RECORDS SUMMARY | 2022-08-21 18:12 | XMS_ITS | Continuity of Care Document ---
:1980 Author Organization [facility] Address [address] [place] [address]- Care Team Providers Name Role Phone Petr Gutierrez MD, Joss Primary Care Physician [phone] [facility] Date(s): 01/08/22 - 02/07/[address] [address] Attending Physician: Jessica Bishop MD Allergies, Adverse Reactions, Alerts Substance Reaction [...] 23-valent vaccine 09/12/17 Given 1Result Comment: [facility] pharmacy GARRICK Forrest [phone] Comment: [07/29/2018] [facility] # - [id number] Comment: [07/29/2018] [facility]#-[id number] 4Result Comment: [06/02/2018] 3 of 3 Medications [...]
--- OUTSIDE RECORDS SUMMARY | 2022-08-21 18:12 | XMS_ITS | Continuity of Care Document ---
:1980 Author Organization [facility] Address [address] [place] [address]- Care Team Providers Name Role Phone Petr Gutierrez MD, Joss Primary Care Physician Encounter [facility] Date(s): 11/26/20 - 11/26/[address] [address]- Encounter Diagnosis Prostatitis (Final) - 11/26/20 Discharge Disposition: A-D/C Home Attending Physician: Cynthia Contreras MD Admitting Physician: Cynthia Contreras MD Referring Physician: Not on Staff, Referring [...] pneumococcal 23-valent vaccine 09/12/17 Given 1Result Comment: [facility] pharmacy GARRICK Parsons [phone] Comment: [07/29/2018] [facility] # - [id number] Comment: [07/29/2018] [facility]#-[id number] 4Result Comment: [06/02/2018] 3 of 3 Medications ciprofloxacin 500 mg oral tablet 1 tablet = 500 mg, By Mouth, Every 12 hours, for 21 days, # 42 tablet, 0 Refills, Acute 12/17/20 8:20:00 EDT, 11/26/20 8:20:00 EST, Tablet, [facility]/pharmacy #[id number], Partial fill upon patient request [...] Portal hypertension(Confirmed) Active Hepatitis C infection(Confirmed) Active Vital Signs Most recent to oldest [Reference Range]: 1 2 Oxygen Saturation [94-100 %] 97 % 100 % (11/26/20 7:41 AM) (11/26/20 5:24 AM) Pulse Rate [55-90 bpm] 87 bpm 88 bpm (11/26/20 7:41 AM) (11/26/20 5:24 AM) Blood Pressure [90-138/55-84 mm Hg] 113/57 mm Hg 129/ 75 mm Hg (11/26/20 7:41 AM) (11/26/20 5:24 AM) Respiratory Rate [16-30 br/min] 18 br/min 18 br/mi n (11/26/20 7:41 AM) (11/26/20 5:24 AM) Temperature [96.8-100.4 DegF] 97.7 DegF 99.6 DegF (11/26/20 7:41 AM) (11/26/20 5:24 AM) Mode of Delivery (Oxygen) Room air Room air (11/26/20 7:41 AM) (11/26/20 5:24 AM) Blood pressure sites Arm, left Arm, right (11/26/20 7:41 AM) (11/26/20 5:24 AM) Temperature Route Oral Oral (11/26/20 7:41 AM) (11/26/20 5:24 AM) Social History Social History Type Response Smoking Status Former smoker; Other: vapes; entered on: 04/07/18 Sex
--- OUTSIDE RECORDS SUMMARY | 2022-08-21 18:12 | XMS_ITS | Continuity of Care Document ---
:1980 Author Organization [facility] Address [address] [place] [address]- Care Team Providers Name Role Phone Petr Gutierrez MD, Joss Primary Care Physician [phone] Encounter [facility] Date(s): 03/22/22 - 04/21/[address] [address]- Attending Physician: Liliana France Admitting Physician: AdmtrLiliana Referring Physician: AdmtrLiliana Allergies, Adverse Reactions, Alerts Substance Reaction Severity Status penicillins Active Bactrim Active Immunizations Given and Recorded Vaccine Date Status Refusal Reason SARS-CoV-2 mRNA (xgqwbgg-dxni-tmcnt) vax 01/19/22 Recorde d SARS-CoV-2 (COVID-19) mRNA [...] vaccine 09/12/17 Given 1Result Comment: [facility] pharmacy GARRICK Forrest [phone] Comment: [07/29/2018] [facility] # - [id number] Comment: [07/29/2018] [facility]#-[id number] 4Result Comment: [06/02/2018] 3 of 3 Medications [...]
--- OUTSIDE RECORDS SUMMARY | 2022-08-21 18:12 | XMS_ITS | Continuity of Care Document ---
:1980 Author Organization [facility] Address [address] [place] [address]- Care Team Providers Name Role Phone Petr Gutierrez MD, Joss Primary Care Physician Encounter [facility] Date(s): 09/25/21 - 10/25/[address] [address]- Allergies, Adverse Reactions, Alerts Substance Reaction Severity [...] pneumococcal 23-valent vaccine 09/12/17 Given 1Result Comment: [facility] pharmacy GARRICK Forrest [phone] Comment: [07/29/2018] [facility] # - [id number] Comment: [07/29/2018] [facility]#-[id number] 4Result Comment: [06/02/2018] 3 of 3 Medications [...] 1 Refills, Maintenance, 03/22/21 12:37:00 EDT, Tablet, [facility]/pharmacy #[id number], 173, cm, 01/31/21 14:34:00 EDT, Height, [...]
--- OUTSIDE RECORDS SUMMARY | 2022-08-21 18:12 | XMS_ITS | Continuity of Care Document ---
:[address] [facility] Address [address] [place] [address]- Care Team Providers Name Role Phone Petr Gutierrez MD, Joss Primary Care Physician Encounter [facility] Date(s): 07/18/22 - 08/15/[address] [address]- Encounter Diagnosis Pain in thoracic spine (Final) - Discharge Disposition: A-D/C Home Attending Physician: Joss Sams MD Admitting Physician: Joss Sams MD Referring Physician: Teresa Li NP Allergies, Adverse Reactions, Alerts Substance Reaction Severity Status clindamycin Active penicillins Active Bactrim Active Immunizations Given and Recorded Vaccine Date Status Refusal Reason pneumococcal 20-valent conjugate vaccine 08/07/22 Given influenza virus vaccine, inactivated 08/07/22 Given influenza virus vaccine, inactivated 01/03/21 Given influenza virus vaccine, inactivated1 08/07/19 Recorded influenza virus vaccine, inactivated2 07/29/18 Given influenza virus vaccine, inactivated 09/12/17 Given SARS-CoV-2 mRNA (bbqeumi-kseh-xacjl) vax 01/19/22 Recorde d SARS-CoV-2 (COVID-19) mRNA BNT-162b2 vac 02/11/21 Recorde d SARS-CoV-2 (COVID-19) mRNA BNT-162b2 vac 01/18/21 Recorde d tetanus/diphtheria/pertussis, acel(Tdap)3 07/29/18 Given hepatitis B adult vaccine4 06/02/18 Given hepatitis B adult vaccine 04/01/18 Given hepatitis B adult vaccine 09/12/17 Given Hepatitis A Adult Vaccine 6/27/18 Given Hepatitis A Adult Vaccine 09/12/17 Given pneumococcal 23-valent vaccine 09/12/17 Given 1Result Comment: [facility] pharmacy [place] [phone] Comment: [07/29/2018] [facility] # - [id number] Comment: [07/29/2018] [facility]#-[id number] 4Result Comment: [06/02/2018] 3 of 3 Medications cetirizine 10 mg oral tablet 1 tablet, By Mouth, Daily, # 30 tablet, 2 Refills, Maintenance, 06/26/22 11:28:00 EDT, [id number], 173, cm, 06/06/22 15:29:00 EDT, Height, 82, [...] II opioid drug. Start Date: 02/14/22 Status: Orderedgabapentin 300 mg oral capsule 1, capsule, By Mouth, 3 times a day, needs an appointment for further refills., # 90 capsule, Refills 3, Tot. Refills 3, Maintenance, 07/22/22 15:12:00 EDT, Route to Pharmacy Electronically, [facility]/pharmacy #[id number], 173, cm, 07/10/22 11:51:00 EDT, Height,... Start Date: 07/22/22 Status: Orderedhepatitis A adult vaccine 50 u/ml intramuscular solution See Instructions, 1 mL give Intramuscular x 2 doses Given 0 - 6 months, # 1 each, 0 Refills, Soft Stop, 09/12/17 10:15:41, Suspension Start Date: 09/12/17 Status: Orderedomeprazole 40 mg oral enteric coated capsule See Instructions, TAKE 1 CAPSULE BY MOUTH twice daily BEFORE MEAL Unresponsive to 40mg daily. Scheduled for EGD., # 180 capsule, 3 Refills, Maintenance, 08/07/22 10:45:00 EDT, [facility]/pharmacy #[id number], 173, cm, 08/07/22 9:55:00 EDT, Height, 75.4, kg, 10/... Start Date: 08/07/22 Status: Orderedprazosin 2 mg oral capsule 1 [...] day, # 60 tablet, Refills 0, Maintenance, 07/09/22 11:09:00 EDT, Route to Pharmacy Electronically, [id number], 173, cm, 06/06/22 15:29:00 EDT, Height, 82, kg, 01/31/21 14:34:00 EDT, Dry Weight Start Date: 07/09/22 Status: Orderedtamsulosin 0.4 mg oral capsule 0.4 mg, 1, capsule, By Mouth, Daily, # 30 capsule, Refills 3, Tot. Refills 3, Maintenance, 12/18/20 17:19:00 EDT, Route to Pharmacy Electronically, [facility]/pharmacy #[id number], Partial fill upon patient requestif the prescription is for a schedule II opioid d... Start Date: 12/18/20 Stop Date: 04/17/21 Status: OrderedtiZANidine 2 mg oral tablet 2 mg, 1, tablet, By Mouth, 3 times a day, PRN, # 90 tablet, Refills 4, Tot. Refills 4, Maintenance, Pain , Moderate, 08/07/22 10:42:00 EDT, Route to Pharmacy Electronically, [facility]/pharmacy #[id number], Partialfill upon patient request if the prescription is... Start Date: 08/07/22 Stop Date: 01/04/23 Status: Ordered Problem List Condition Confirmation Course Effective Dates Status Health Stat us Informant Cirrhosis of liver Confirmed Active Chronic GERD Confirmed Active Herpes genitalis in Confirmed Active men History of Confirmed Active hepatitis C Neuropathy Confirmed Active Portal hypertension Confirmed Active Thoracic back pain Confirmed Active Social History Social History Type Response Tobacco Use: pt denies. Sex Patient Care team information Care Team PersonnelName: Petr Gutierrez MD, Joss Position: S Primary Care Physician Member Role: PCP Address: Address: [address] [place] [address] [place] [address]- Care Team Related PersonsName: BECCA PATE Address: home [address] [place] [id number]
--- OUTSIDE RECORDS SUMMARY | 2022-08-21 18:12 | XMS_ITS | Continuity of Care Document ---
:1980 Author Organization [facility] Address [address] [place] [address]- Care Team Providers Name Role Phone Petr Gutierrez MD, Joss Primary Care Physician Encounter [facility] Date(s): 12/12/20 - 01/11/[address] [address]- Allergies, Adverse Reactions, Alerts Substance Reaction Severity [...] pneumococcal 23-valent vaccine 09/12/17 Given 1Result Comment: [facility] pharmacy [place], [place] [phone] Comment: [07/29/2018] [facility] # - [id number] Comment: [07/29/2018] [facility]#-[id number] 4Result Comment: [06/02/2018] 3 of 3 Medications [...]
--- OUTSIDE RECORDS SUMMARY | 2022-08-21 18:12 | XMS_ITS | Continuity of Care Document ---
:1980 Author Organization [facility] Address [address] [place] [address]- Care Team Providers Name Role Phone Joss Sams MD Primary Care Physician Encounter [facility] Date(s): 10/04/20 - 11/15/[address] [address] [phone] Attending Physician: Joss Sams MD Admitting Physician: Joss Sams MD Referring Physician: Joss Sams MD Allergies, Adverse Reactions, [...] 1Result Comment: [facility] pharmacy [place] [phone] Comment: [07/29/2018] [facility] # - [id number] Comment: [07/29/2018] [facility]#-[id number] 4Result Comment: [06/02/2018] 3 of 3 Medications [...]
--- OUTSIDE RECORDS SUMMARY | 2022-08-21 18:12 | XMS_ITS | Continuity of Care Document ---
:1980 Author Organization [facility] Address [address] [place] [address]- Care Team Providers Name Role Phone Petr Gutierrez MD, Joss Primary Care Physician Encounter [facility] Date(s): 09/21/21 - 10/21/21 [facility] [address] [place] [address]- Attending Physician: Liliana France Admitting Physician: AdmLiliana roblero Referring Physician: AdmtrLiliana Allergies, Adverse Reactions, Alerts [...] [facility] pharmacy [place] [phone] Comment: [07/29/2018] [facility] # - [id number] Comment: [07/29/2018] [facility]#-[id number] 4Result Comment: [06/02/2018] 3 of 3 Medications [...] 1 Refills, Maintenance, 03/22/21 12:37:00 EDT, Tablet, [facility]/pharmacy #[id number], 173, cm, 01/31/21 14:34:00 EDT, [...]
--- OUTSIDE RECORDS SUMMARY | 2022-08-21 18:12 | XMS_ITS | Continuity of Care Document ---
:1980 Author Organization [facility] Address [address] [place] [address]- Care Team Providers Name Role Phone Petr Gutierrez MD, Joss Primary Care Physician Encounter [facility] Date(s): 01/08/22 - 02/07/[address] [address] Allergies, Adverse Reactions, Alerts Substance Reaction Severity [...] pneumococcal 23-valent vaccine 09/12/17 Given 1Result Comment: [facility] pharmacy [place] [phone] Comment: [07/29/2018] [facility] # - [id number] Comment: [07/29/2018] [facility]#-[id number] 4Result Comment: [06/02/2018] 3 of 3 Medications [...]
--- OUTSIDE RECORDS SUMMARY | 2022-08-21 18:12 | XMS_ITS | Continuity of Care Document ---
:1980 Author Organization [facility] Kamla Bailey [facility] Address [address] [place] [address]- Care Team Providers Name Role Phone Joss Sams MD Primary Care Physician [phone] Encounter [facility] Date(s): 10/19/20 - 10/26/20 [facility] Kamla Bailey [facility] [address] [place] [address]- Attending Physician: Bethanie JIMENEZ, Sonia Referring Physician: Joss Sams MD Allergies, Adverse [...] pneumococcal 23-valent vaccine 09/12/17 Given 1Result Comment: [facility] pharmacy [place], [place] [phone] Comment: [07/29/2018] [facility] # - [id number] Comment: [07/29/2018] [facility]#-[id number] 4Result Comment: [06/02/2018] 3 of 3 Medications [...]
--- OUTSIDE RECORDS SUMMARY | 2022-08-21 18:12 | XMS_ITS | Continuity of Care Document ---
:1980 Author Organization [facility] Address [address] [place] [address]- Care Team Providers Name Role Phone Petr Gutierrez MD, Joss Primary Care Physician [phone] Encounter [facility] Date(s): 01/30/22 - 03/01/[address] [address]- Allergies, Adverse Reactions, Alerts Substance Reaction Severity [...] pneumococcal 23-valent vaccine 09/12/17 Given 1Result Comment: [facility] pharmacy [place] [phone] Comment: [07/29/2018] [facility] # - [id number] Comment: [07/29/2018] [facility]#-[id number] 4Result Comment: [06/02/2018] 3 of 3 Medications [...]
--- OUTSIDE RECORDS SUMMARY | 2022-08-21 18:12 | XMS_ITS | Continuity of Care Document ---
:1980 Author Organization [facility] Address [address] [place] [address]- Care Team Providers Name Role Phone Petr Gutierrez MD, Joss Primary Care Physician [phone] Encounter [facility] Date(s): 01/08/22 - 02/07/[address] [address] Allergies, Adverse Reactions, Alerts Substance Reaction Severity [...] pneumococcal 23-valent vaccine 09/12/17 Given 1Result Comment: [facility] pharmacy [place] [phone] Comment: [07/29/2018] [facility] # - [id number] Comment: [07/29/2018] [facility]#-[id number] 4Result Comment: [06/02/2018] 3 of 3 Medications [...]
--- OUTSIDE RECORDS SUMMARY | 2022-08-21 18:12 | XMS_ITS | Continuity of Care Document ---
:1980 Author Organization [facility] Address [address] [place] [address]- Care Team Providers Name Role Phone Petr Gutierrez MD, Joss Primary Care Physician Encounter [facility] Date(s): 10/16/20 - 11/15/[address] [address]- Allergies, Adverse Reactions, Alerts Substance Reaction Severity [...] pneumococcal 23-valent vaccine 09/12/17 Given 1Result Comment: [facility] pharmacy [place], [place] [phone] Comment: [07/29/2018] [facility] # - [id number] Comment: [07/29/2018] [facility]#-[id number] 4Result Comment: [06/02/2018] 3 of 3 Medications [...]
--- OUTSIDE RECORDS SUMMARY | 2022-08-21 18:12 | XMS_ITS | Continuity of Care Document ---
:1980 Author Organization [facility] Address [address] [place] [address]- Care Team Providers Name Role Phone Petr Gutierrez MD, Joss Primary Care Physician [phone] Encounter [facility] Date(s): 09/04/21 - 10/04/[address] [address]- Allergies, Adverse Reactions, Alerts Substance Reaction Severity [...] pneumococcal 23-valent vaccine 09/12/17 Given 1Result Comment: [facility] pharmacy [place] [phone] Comment: [07/29/2018] [facility] # - [id number] Comment: [07/29/2018] [facility]#-[id number] 4Result Comment: [06/02/2018] 3 of 3 Medications [...] 1 Refills, Maintenance, 03/22/21 12:37:00 EDT, Tablet, [facility]/pharmacy #[id number], 173, cm, 01/31/21 14:34:00 EDT, Height, [...]
--- OUTSIDE RECORDS SUMMARY | 2022-08-21 18:12 | XMS_ITS | Continuity of Care Document ---
:1980 Author Organization [facility] Address [address] [place] [address]- Care Team Providers Name Role Phone Petr Gutierrez MD, Joss Primary Care Physician Encounter [facility] Date(s): 01/15/22 - 02/14/[address] [address]- Allergies, Adverse Reactions, Alerts Substance Reaction Severity [...] Comment: [facility] pharmacy [place] [phone] Comment: [07/29/2018] [facility] # - [id number] Comment: [07/29/2018] [facility]#-[id number] 4Result Comment: [06/02/2018] 3 of 3 Medications [...]
--- OUTSIDE RECORDS SUMMARY | 2022-08-21 18:12 | XMS_ITS | Continuity of Care Document ---
:1980 Author Organization [facility] Address [address] [place] [address]- Care Team Providers Name Role Phone Petr Gutierrez MD, Joss Primary Care Physician Encounter [facility] Date(s): 07/09/22 - 07/09/[address] [address]- Discharge Disposition: A-D/C AMA Attending Physician: Farhana Gleason MD Admitting Physician: Farhana Gleason MD Referring Physician: Not on Staff, Referring MD Allergies, Adverse Reactions, Alerts Substance Reaction Severity Status penicillins Active Bactrim Active Immunizations Given and Recorded Vaccine Date Status Refusal Reason SARS-CoV-2 mRNA (suxrkoy-pyys-cstzz) vax 01/19/22 Recorde d SARS-CoV-2 (COVID-19) mRNA [...] pneumococcal 23-valent vaccine 09/12/17 Given 1Result Comment: [facility] pharmacy [place] [phone] Comment: [07/29/2018] [facility] # - [id number] Comment: [07/29/2018] [facility]#-[id number] 4Result Comment: [06/02/2018] 3 of 3 Medications cetirizine 10 mg oral tablet 1 tablet, By Mouth, Daily, # 30 tablet, 2 Refills, Maintenance, 06/26/22 11:28:00 EDT, [facility], 173, cm, 06/06/22 15:29:00 EDT, Height, 82, [...] mL, 0 Refills, Maintenance, 02/18/22 15:32:00 EDT, [facility]/pharmacy #[id number], Partial fill upon patient request if the prescription is for a schedule II opioid drug., use 4 times a day a... Start Date: 02/18/22 Status: Orderedgabapentin 300 mg oral capsule 1, capsule, By Mouth, 3 times a day, needs an appointment for further refills., # 90 capsule, Refills 3, Tot. Refills 3, Maintenance, 04/09/22 10:28:00 EDT, Route to Pharmacy Electronically, [facility]/pharmacy #[id number], 173, cm, 03/22/22 11:24:00 EDT, Height,... [...] capsule, 0 Refills, Maintenance, 06/29/22 22:18:00 EDT, [id number], 173, cm, 06/06/22 15:29:00 EDT, Height, 82, [...] 07/09/22 11:09:00 EDT, Route to Pharmacy Electronically, [facility] 39261, 173, cm, 06/06/22 15:29:00 EDT, Height, 82, kg, 01/31/21 14:34:00 EDT, Dry Weight Start Date: 07/09/22 Status: Orderedtamsulosin 0.4 mg oral capsule 0.4 mg, 1, capsule, By Mouth, Daily, # 30 capsule, Refills 3, Tot. Refills 3, Maintenance, 12/18/20 17:19:00 EDT, [id number] Partial fill upon patient requestif the prescription is for a schedule II opioid d... Start Date: 12/18/20 Stop Date: 04/17/21 Status: OrderedViagra 25 mg oral tablet 1 tablet = 25 mg, By Mouth, Daily, 1 hour before sexual activity, # 10 tablet, 0 Refills, Maintenance, 06/23/20 15:45:00 EDT, Tablet, [facility]/pharmacy #[id number], 173, cm, 06/23/20 15:16:00 EDT, [...] Confirmed Active Thoracic back pain Confirmed Active Results Radiology Reports Exam Date Time Procedure Performing Provider Status 07/09/22 1:25 PM Chest 2 Views Frontal and Lat Rosa Whitehead; Auth (Verified) Notes:(Chest 2 Views Frontal and Lat) Reason For Exam: Chest Pain;Other:RESULT: Chest 2 Views Frontal and Lat Chest 2 Views Frontal and Lat Hx of Present Illness: midline upper thoracic back pain and L upper back pain, daily occurance x2 months, over the last week pt has been experiencing daily headaches, + lightheaded, little relieve withotc meds or position changes, also reports ongoing esophagus pain ; Reason: Other:; Chest Pain; Clinical Question(s): Other: COMPARISON: 01/23/2022 FINDINGS: LINES AND TUBES: None. LUNGS AND PLEURA: Clear lungs. Normal pulmonary vascularity. No pleural effusion. No pneumothorax. HEART, MEDIASTINUM AND RADHAMES: Heart is normal in size. Normal mediastinal and hilar contour. BONES AND SOFT TISSUES: No acute abnormality. IMPRESSION: No radiographic evidence of an acute cardiopulmonary process. I have personally reviewed the images and I agree with this report. WSN: [id number] Ordering Physician: Eddi Stanton Dictated By: Eda Blancas MD Dictated Date/Time: 07/09/22 1:58 pm Reviewed By: Rebel Qureshi MD, V Signed By: Rebel Qureshi MD, V Signed Date/Time: 07/09/22 2:03 pm Transcribed By: RINA Transcribed Date/Time: 07/09/22 1:53 pm Vital Signs Most recent to oldest 1 2 3 [Reference Range]: Oxygen Saturation [94-100 %] 97 % 96 % 97 % (07/09/22:23 PM) (07/09/22 3:07 PM) (07/09/22 12: 51 PM) Pulse Rate [55-90 bpm] 70 bpm 61 bpm 71 bpm (07/09/22:23 PM) (07/09/22 3:07 PM) (07/09/22 12: 51 PM) Blood Pressure [90-138/55-84 126/68 mm Hg 108/79 mm Hg 125 /64 mm Hg mm Hg] (07/09/22:23 PM) (07/09/22 3:07 PM) (07/09/22 12: 51 PM) Respiratory Rate [16-30 18 br/min 18 br/min br/min] (07/09/22:23 PM) (07/09/22 12:51 PM) Temperature [96.8-100.4 DegF] 98.7 DegF 98.1 DegF 98 .7 DegF (07/09/22:23 PM) (07/09/22 3:07 PM) (07/09/22 12: 51 PM) Mode of Delivery (Oxygen) Room air Room air Room a ir (07/09/22:23 PM) (07/09/22 3:07 PM) (07/09/22 12: 51 PM) Blood pressure sites Arm, right Arm, left Arm, left (07/09/22:23 PM) (07/09/22 3:07 PM) (07/09/22 12: 51 PM) Temperature Route Oral Oral Oral (07/09/22:23 PM) (07/09/22 3:07 PM) (07/09/22 12: 51 PM) Social History Social History Type Response Smoking Status Former smoker; Other: vapes; entered on: 04/07/18 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 LUNGS AND PLEURA: Clear lungs. Normal pulmonary vascularity. No pleural effusion. No pneumothorax. HEART, MEDIASTINUM AND RADHAMES: Heart is normal in size. Normal mediastinal and hilar contour. BONES AND SOFT TISSUES: No acute abnormality. IMPRESSION: No radiographic evidence of an acute cardiopulmonary process. I have personally reviewed the images and I agree with this report. WSN: [id number] Ordering Physician: Eddi Stanton Dictated By: Eda Blancas MD Dictated Date/Time: 07/09/22 1:58 pm Reviewed By: Rebel Qureshi MD, V Signed By: Rebel Qureshi MD, V Signed Date/Time: 07/09/22 2:03 pm Transcribed By: RINA Transcribed Date/Time: 07/09/22 1:53 pm Patient Care team information PersonnelName: Joss Sams MD Address: Address: [address] [place] [address]
--- OUTSIDE RECORDS SUMMARY | 2022-08-21 18:12 | XMS_ITS | Continuity of Care Document ---
:1980 Author Organization [facility] Address [address] [place] [address]- Care Team Providers Name Role Phone Joss Sams MD Primary Care Physician Encounter [id number] Date(s): 01/24/20 - 01/26/20 [facility] [address] [place] [address]- [facility] Attending Physician: Joss Sams MD Allergies, Adverse [...] pneumococcal 23-valent vaccine 09/12/17 Given 1Result Comment: [facility] pharmacy [place] [phone] Comment: [07/29/2018] [facility] # - [id number] Comment: [07/29/2018] [facility]#-[id number] 4Result Comment: [06/02/2018] 3 of 3 Medications Colace sodium 50 mg oral capsule 1 capsule = 50 mg, By Mouth, 2 times a day, PRN for constipation, # 180 capsule, 0 Refills, Maintenance, 07/14/17 15:37:33, Capsule Start Date: 07/14/17 Status: OrderedFLUoxetine [...] in men(Confirmed) Active Hepatitis C infection(Confirmed) Active Social History Social History Type Response Smoking Status Former smoker; Other: vapes; entered on: 04/07/18 Sex
--- OUTSIDE RECORDS SUMMARY | 2022-08-21 18:12 | XMS_ITS | Continuity of Care Document ---
:1980 Author Organization [facility] Address [address] [place] [address]- Care Team Providers Name Role Phone Petr Gutierrez MD, Joss Primary Care Physician Encounter [facility] Date(s): 07/26/21 - 08/25/[address] [address]- Allergies, Adverse Reactions, Alerts Substance Reaction Severity [...] pneumococcal 23-valent vaccine 09/12/17 Given 1Result Comment: [facility] [place], [place] [phone] Comment: [07/29/2018] [facility] # - [id number] Comment: [07/29/2018] [facility]#-[id number] 4Result Comment: [06/02/2018] 3 of 3 Medications [...] 1 Refills, Maintenance, 03/22/21 12:37:00 EDT, Tablet, [facility]/pharmacy #[id number], 173, cm, 01/31/21 14:34:00 [...]
--- OUTSIDE RECORDS SUMMARY | 2022-08-21 18:12 | XMS_ITS | Continuity of Care Document ---
:1980 Author Organization [facility] Address [address] [place] [address]- Care Team Providers Name Role Phone Petr Gutierrez MD, Joss Primary Care Physician [phone] Encounter [facility] Date(s): 04/12/22 - 05/12/22 [facility] [address]- Attending Physician: Liliana France Admitting Physician: Liliana France Referring Physician: AdmtrLiliana Allergies, Adverse Reactions, Alerts Substance Reaction Severity Status penicillins Active Bactrim Active Immunizations Given and Recorded Vaccine Date Status Refusal Reason SARS-CoV-2 mRNA (agktreg-fyeo-jnwrc) vax 01/19/22 Recorde d SARS-CoV-2 (COVID-19) mRNA [...] 23-valent vaccine 09/12/17 Given 1Result Comment: [facility] pharmacy [place] [phone] Comment: [07/29/2018] [facility] # - [id number] Comment: [07/29/2018] [facility]#-[id number] 4Result Comment: [06/02/2018] 3 of 3 Medications [...]
--- OUTSIDE RECORDS SUMMARY | 2022-08-21 18:12 | XMS_ITS | Continuity of Care Document ---
:1980 Author Organization [facility] Kamla Bailey [facility] Address [address] [place] [address]- Care Team Providers Name Role Phone Petr Gutierrez MD, Joss Primary Care Physician Encounter [facility] Date(s): 12/05/20 - 01/04/21 [facility] Kamla Bailey [facility] [address] [place] [address]- Attending Physician: AdmLiliana roblero Admitting Physician: AdmtrLiliana [...] pneumococcal 23-valent vaccine 09/12/17 Given 1Result Comment: [facility] pharmacy [place] [phone] Comment: [07/29/2018] [facility] # - [id number] Comment: [07/29/2018] [facility]#-[id number] 4Result Comment: [06/02/2018] 3 of 3 Medications [...]
--- OUTSIDE RECORDS SUMMARY | 2022-08-21 18:12 | XMS_ITS | Continuity of Care Document ---
:1980 Author Organization [facility] Address [address] [place] [address]- Care Team Providers Name Role Phone Petr Gutierrez MD, Joss Primary Care Physician [phone] Encounter [facility] Date(s): 07/08/22 - 08/07/[address] [address]- Allergies, Adverse Reactions, Alerts Substance Reaction Severity Status clindamycin Active penicillins Active Bactrim Active Immunizations Given and Recorded Vaccine Date Status Refusal Reason pneumococcal 20-valent conjugate vaccine 08/07/22 Given influenza virus vaccine, inactivated 08/07/22 Given influenza virus vaccine, inactivated 01/03/21 Given influenza virus vaccine, inactivated1 08/07/19 Recorded influenza virus vaccine, inactivated2 07/29/18 Given influenza virus vaccine, inactivated 09/12/17 Given SARS-CoV-2 mRNA (gixrozy-ylbq-hjjso) vax 01/19/22 Recorde d SARS-CoV-2 (COVID-19) mRNA BNT-162b2 vac 02/11/21 Recorde d SARS-CoV-2 (COVID-19) mRNA BNT-162b2 vac 01/18/21 Recorde d tetanus/diphtheria/pertussis, acel(Tdap)3 07/29/18 Given hepatitis B adult vaccine4 06/02/18 Given hepatitis B adult vaccine 04/01/18 Given hepatitis B adult vaccine 09/12/17 Given Hepatitis A Adult Vaccine 04/01/18 Given Hepatitis A Adult Vaccine 09/12/17 Given pneumococcal 23-valent vaccine 09/12/17 Given 1Result Comment: [facility] pharmacy [place] [phone] Comment: [07/29/2018] [facility] # - [id number] Comment: [07/29/2018] [facility]#-[id number] 4Result Comment: [06/02/2018] 3 of 3 Medications cetirizine 10 mg oral tablet 1 tablet, By Mouth, Daily, # 30 tablet, 2 Refills, Maintenance, 06/26/22 11:28:00 EDT, [id number], 173, cm, 06/06/22 15:29:00 EDT, Height, 82, [...] 07/22/22 15:12:00 EDT, Route to Pharmacy Electronically, [facility]/pharmacy #[id number], 173, cm, 07/10/22 11:51:00 EDT, Height,... [...] capsule, 3 Refills, Maintenance, 08/07/22 10:45:00 EDT, [facility]/pharmacy #[id number], 173, cm, 08/07/22 9:55:00 EDT, Height, [...] 07/09/22 11:09:00 EDT, Route to Pharmacy Electronically, [facility] STORE [id number], 173, cm, 06/06/22 15:29:00 EDT, Height, 82, kg, 01/31/21 14:34:00 EDT, Dry Weight Start Date: 07/09/22 Status: Orderedtamsulosin 0.4 mg oral capsule 0.4 mg, 1, capsule, By Mouth, Daily, # 30 capsule, Refills 3, Tot. Refills 3, Maintenance, 12/18/20 17:19:00 EDT, Route to Pharmacy Electronically, [facility]/pharmacy #[id number], Partial fill upon patient requestif the prescription is for a schedule II opioid d... Start Date: 12/18/20 Stop Date: 04/17/21 Status: OrderedtiZANidine 2 mg oral tablet 2 mg, 1, tablet, By Mouth, 3 times a day, PRN, # 90 tablet, Refills 4, Tot. Refills 4, Maintenance, Pain , Moderate, 08/07/22 10:42:00 EDT, [id number], Partialfill upon patient request if the prescription [...] pt denies. Sex Patient Care team information PersonnelName: Joss Sams MD Address: Address: [address] [place] [id number]
--- OUTSIDE RECORDS SUMMARY | 2022-08-21 18:12 | XMS_ITS | Continuity of Care Document ---
:1980 Author Organization [facility] Address [address] [place] [address]- Care Team Providers Name Role Phone Petr Gutierrez MD, Joss Primary Care Physician [phone] Encounter [facility] Date(s): 01/02/21 - 02/01/[address] [address]- Allergies, Adverse Reactions, Alerts Substance Reaction Severity [...] vaccine 09/12/17 Given 1Result Comment: [facility] pharmacy [place] [phone] Comment: [07/29/2018] [facility] # - [id number] Comment: [07/29/2018] [facility]#-[id number] 4Result Comment: [06/02/2018] 3 of 3 Medications [...]
--- OUTSIDE RECORDS SUMMARY | 2022-08-21 18:12 | XMS_ITS | Continuity of Care Document ---
:1980 Author Organization [facility] Address [address] [place] [address]- Care Team Providers Name Role Phone Petr Gutierrez MD, Joss Primary Care Physician Encounter [facility] Date(s): 02/11/22 - 03/13/[address] [address]- Allergies, Adverse Reactions, Alerts Substance Reaction Severity [...] pneumococcal 23-valent vaccine 09/12/17 Given 1Result Comment: [facility] pharmacy [place]ICK [place] [phone] Comment: [07/29/2018] [facility] # - [id number] Comment: [07/29/2018] [facility]#-[id number] 4Result Comment: [06/02/2018] 3 of 3 Medications [...]
--- OUTSIDE RECORDS SUMMARY | 2022-08-21 18:12 | XMS_ITS | Continuity of Care Document ---
:1980 Author Organization [facility] Address [address] [place] [address]- Care Team Providers Name Role Phone Petr Gutierrez MD, Joss Primary Care Physician Encounter [facility] Date(s): 11/22/20 - 12/22/[address] [address]- Allergies, Adverse Reactions, Alerts Substance Reaction Severity [...] pneumococcal 23-valent vaccine 09/12/17 Given 1Result Comment: [facility] pharmacy [place], [place] [phone] Comment: [07/29/2018] [facility] # - [id number] Comment: [07/29/2018] [facility]#-[id number] 4Result Comment: [06/02/2018] 3 of 3 Medications [...]
--- OUTSIDE RECORDS SUMMARY | 2022-08-21 18:12 | XMS_ITS | Continuity of Care Document ---
:1980 Author Organization [facility] Address [address] [place] [address]- Care Team Providers Name Role Phone Petr Gutierrez MD, Joss Primary Care Physician [phone] Encounter [facility] Date(s): 06/26/20 - 07/26/20 [facility] [address] [place] [address]- [facility] Allergies, Adverse Reactions, Alerts Substance Reaction Severity [...] Comment: [facility] pharmacy GARRICK [place] [phone] Comment: [07/29/2018] [facility] # - [id number] Comment: [07/29/2018] [facility]NOTE 2]#-[id number] 4Result Comment: [06/02/2018] 3 of 3 Medications [...]
--- OUTSIDE RECORDS SUMMARY | 2022-08-21 18:12 | XMS_ITS | Continuity of Care Document ---
:1980 Author Organization [facility] Address [address] [place] [address]- Care Team Providers Name Role Phone Joss Sams MD Primary Care Physician [phone] Encounter [facility] Date(s): 01/19/20 - 01/29/[address] [address]- [facility] Attending Physician: Elliot France8 Admitting Physician: AdmLiliana roblero Referring Physician: AdmtrLiliana [...] 09/12/17 Given 1Result Comment: [facility] pharmacy GARRICK Pars[place] [phone] Comment: [07/29/2018] [facility] # - [id number] Comment: [07/29/2018] [facility]#-[id number] 4Result Comment: [06/02/2018] 3 of 3 Medications [...]
--- OUTSIDE RECORDS SUMMARY | 2022-08-21 18:12 | XMS_ITS | Continuity of Care Document ---
:1980 Author Organization [facility] Address [address] [place] [address]- Care Team Providers Name Role Phone Petr Gutierrez MD, Joss Primary Care Physician Encounter [facility] Date(s): 12/13/20 - 01/12/[address] [address]- Allergies, Adverse Reactions, Alerts Substance Reaction Severity [...] pneumococcal 23-valent vaccine 09/12/17 Given 1Result Comment: [facility] pharmacy [place], [place] [phone] Comment: [07/29/2018] [facility] # - [id number] Comment: [07/29/2018] [facility]#-[id number] 4Result Comment: [06/02/2018] 3 of 3 Medications [...]
--- OUTSIDE RECORDS SUMMARY | 2022-08-21 18:12 | XMS_ITS | Continuity of Care Document ---
:1980 Author Organization [facility] Address [address] [place] [address]- Care Team Providers Name Role Phone Petr Gutierrez MD, Joss Primary Care Physician Encounter [facility] Date(s): 01/18/21 - 02/17/[address] [address]- Allergies, Adverse Reactions, Alerts Substance Reaction Severity [...] 23-valent vaccine 09/12/17 Given 1Result Comment: [facility] pharmacy [place] [phone] Comment: [07/29/2018] [facility] # - [id number] Comment: [07/29/2018] [facility]#-[id number] 4Result Comment: [06/02/2018] 3 of 3 Medications [...]
--- OUTSIDE RECORDS SUMMARY | 2022-08-21 18:13 | XMS_ITS | Continuity of Care Document ---
:1980 Author Organization [facility] Address [address] [place] [address]- Care Team Providers Name Role Phone Petr Gutierrez MD, Joss Primary Care Physician Encounter [facility] Date(s): 08/28/21 - 09/27/[address] [address]- Allergies, Adverse Reactions, Alerts Substance Reaction Severity [...] pneumococcal 23-valent vaccine 09/12/17 Given 1Result Comment: [facility] pharmacy [place]ICK [place] [phone] Comment: [07/29/2018] [facility] # - [id number] Comment: [07/29/2018] [facility]#-[id number] 4Result Comment: [06/02/2018] 3 of 3 Medications [...] 1 Refills, Maintenance, 03/22/21 12:37:00 EDT, Tablet, [facility]/pharmacy #[id number], 173, cm, 01/31/21 [...]
--- OUTSIDE RECORDS SUMMARY | 2022-08-21 18:13 | XMS_ITS | Continuity of Care Document ---
:1980 Author Organization [facility] Address [address] [place] [address]- Care Team Providers Name Role Phone Petr Gutierrez MD, Joss Primary Care Physician Encounter [facility] Date(s): 03/22/21 - 04/21/[address] [address]- Allergies, Adverse Reactions, Alerts Substance Reaction Severity [...] 23-valent vaccine 09/12/17 Given 1Result Comment: [facility] pharmacy [place], [place] [phone] Comment: [07/29/2018] [facility] # - [id number] Comment: [07/29/2018] [facility]#-[id number] 4Result Comment: [06/02/2018] 3 of 3 Medications [...] 1 Refills, Maintenance, 03/22/21 12:37:00 EDT, Tablet, [facility]/pharmacy #[id number], 173, cm, 01/31/21 14:34:00 EDT, [...]
--- OUTSIDE RECORDS SUMMARY | 2022-08-21 18:13 | XMS_ITS | Continuity of Care Document ---
:1980 Author Organization [facility] Address [address] [place] [address]- Care Team Providers Name Role Phone Petr Gutierrez MD, Joss Primary Care Physician [phone] Encounter [facility] Date(s): 08/28/21 - 09/27/[address] [address]- Allergies, Adverse Reactions, Alerts Substance Reaction Severity [...] pneumococcal 23-valent vaccine 09/12/17 Given 1Result Comment: [facility] pharmacy [place] [phone] Comment: [07/29/2018] [facility] # - [id number] Comment: [07/29/2018] [facility]#-[id number] 4Result Comment: [06/02/2018] 3 of 3 Medications [...] 1 Refills, Maintenance, 03/22/21 12:37:00 EDT, Tablet, [facility]/pharmacy #[id number], 173, cm, 01/31/21 14:34:00 EDT, [...]
--- OUTSIDE RECORDS SUMMARY | 2022-08-21 18:13 | XMS_ITS | Continuity of Care Document ---
:1980 Author Organization [facility] Address [address] [place] [address]- Care Team Providers Name Role Phone Petr Gutierrez MD, Joss Primary Care Physician [phone] Encounter [facility] Date(s): 06/29/21 - 07/29/[address] [address]- Allergies, Adverse Reactions, Alerts Substance Reaction Severity [...] pneumococcal 23-valent vaccine 09/12/17 Given 1Result Comment: [facility] pharmacy [place] [phone] Comment: [07/29/2018] [facility] # - [id number] Comment: [07/29/2018] [facility]#-[id number] 4Result Comment: [06/02/2018] 3 of 3 Medications [...] 1 Refills, Maintenance, 03/22/21 12:37:00 EDT, Tablet, [facility]/pharmacy #[id number], 173, cm, 01/31/21 14:34:00 EDT, [...]
--- OUTSIDE RECORDS SUMMARY | 2022-08-21 18:13 | XMS_ITS | Continuity of Care Document ---
:1980 Author Organization [facility] Address [address] [place] [address]- Care Team Providers Name Role Phone Petr Gutierrez MD, Joss Primary Care Physician [phone] Encounter [facility] Date(s): 01/21/22 - 02/20/[address] [address]- Allergies, Adverse Reactions, Alerts Substance Reaction Severity [...] Comment: [facility] pharmacy [place]ICK [place] [phone] Comment: [07/29/2018] [facility] # - [id number] Comment: [07/29/2018] [facility]#-[id number] 4Result Comment: [06/02/2018] 3 of 3 Medications [...]
--- OUTSIDE RECORDS SUMMARY | 2022-08-21 18:13 | XMS_ITS | Continuity of Care Document ---
:1980 Author Organization [facility] Address [address] [place] [address]- Care Team Providers Name Role Phone Petr Gutierrez MD, Joss Primary Care Physician Encounter [facility] Date(s): 06/29/22 - 07/29/[address] [address]- Allergies, Adverse Reactions, Alerts Substance Reaction Severity Status penicillins Active Bactrim Active Immunizations Given and Recorded Vaccine Date Status Refusal Reason SARS-CoV-2 mRNA (hjnehbg-xboq-wcrbz) vax 01/19/22 Recorde d SARS-CoV-2 (COVID-19) mRNA [...] 23-valent vaccine 09/12/17 Given 1Result Comment: [facility] pharmacy [place] [phone] Comment: [07/29/2018] [facility] # - [id number] Comment: [07/29/2018] [facility]#-[id number] 4Result Comment: [06/02/2018] 3 of 3 Medications cetirizine 10 mg oral tablet 1 tablet, By Mouth, Daily, # 30 tablet, 2 Refills, Maintenance, 06/26/22 11:28:00 EDT, [facility], 173, cm, 06/06/22 15:29:00 EDT, Height, 82, [...] mL, 0 Refills, Maintenance, 02/18/22 15:32:00 EDT, [facility]/pharmacy #[id number], Partial fill upon patient request if the prescription is for a schedule II opioid drug., use 4 times a day a... Start Date: 02/18/22 Status: Orderedgabapentin 300 mg oral capsule 1, capsule, By Mouth, 3 times a day, needs an appointment for further refills., # 90 capsule, Refills 3, Tot. Refills 3, Maintenance, 07/22/22 15:12:00 EDT, Route to Pharmacy Electronically, [facility]/pharmacy #[id number], 173, cm, 07/10/22 11:51:00 [...] capsule, 0 Refills, Maintenance, 06/29/22 22:18:00 EDT, [email or web address], 173, cm, 06/06/22 15:29:00 EDT, Height, 82, [...] 07/09/22 11:09:00 EDT, Route to [facility]ically, [facility], 173, cm, 06/06/22 15:29:00 EDT, Height, 82, kg, 01/31/21 14:34:00 EDT, Dry Weight Start Date: 07/09/22 Status: Orderedtamsulosin 0.4 mg oral capsule 0.4 mg, 1, capsule, By Mouth, Daily, # 30 capsule, Refills 3, Tot. Refills 3, Maintenance, 12/18/20 17:19:00 EDT, Route to Pharmacy Electronically, [facility]/pharmacy #[id number], Partial fill upon patient requestif the prescription is for a schedule II opioid d... Start Date: 12/18/20 Stop Date: 04/17/21 Status: OrderedViagra 25 mg oral tablet 1 tablet = 25 mg, By Mouth, Daily, 1 hour before sexual activity, # 10 tablet, 0 Refills, Maintenance, 06/23/20 15:45:00 EDT, Tablet, [facility]/pharmacy #[id number], 173, cm, 06/23/20 15:16:00 [...] 04/07/18 Sex Patient Care team information PersonnelName: Joss Sams MD Address: Address: [address] [place] [id number]
--- OUTSIDE RECORDS SUMMARY | 2022-08-21 18:13 | XMS_ITS | Continuity of Care Document ---
:1980 Author Organization [facility] Address [address] [place] [address]- Care Team Providers Name Role Phone Petr Gutierrez MD, Joss Primary Care Physician Encounter [facility] Date(s): 11/21/20 - 12/21/[address] [address]- Allergies, Adverse Reactions, Alerts Substance Reaction Severity [...] pneumococcal 23-valent vaccine 09/12/17 Given 1Result Comment: [facility] [place] [phone] Comment: [07/29/2018] [facility] # - [id number] Comment: [07/29/2018] [facility]#-[id number] 4Result Comment: [06/02/2018] 3 of 3 Medications [...]
--- OUTSIDE RECORDS SUMMARY | 2022-08-21 18:13 | XMS_ITS | Continuity of Care Document ---
:1980 Author Organization [facility] Address [address] [place] [address]- Care Team Providers Name Role Phone Petr Gutierrez MD, Joss Primary Care Physician Encounter [facility] Date(s): 09/05/21 - 10/05/[address] [address]- Allergies, Adverse Reactions, Alerts Substance Reaction Severity [...] pneumococcal 23-valent vaccine 09/12/17 Given 1Result Comment: [facility] pharmacy GARRICK [place] [phone] Comment: [07/29/2018] [facility] # - [id number] Comment: [07/29/2018] [facility]#-[id number] 4Result Comment: [06/02/2018] 3 of 3 Medications [...] 1 Refills, Maintenance, 03/22/21 12:37:00 EDT, Tablet, [facility]/pharmacy #[id number], 173, cm, 01/31/21 14:34:00 EDT, [...]
[2022-08-21 18:40] VITALS: BP 131/70; PULSE 72; RESP 16; TEMP 36.9; O2SAT 97
--- NOTE | 2022-08-21 19:02 | PC.NURSE ---
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
[2022-08-21 19:28] LABS: COVID-19 Test Negative (Negative); IDNOW Serial# BCCEAD1C
[2022-08-21 19:39] VITALS: BP 130/64; PULSE 72; RESP 16; TEMP 36.3; O2SAT 98
[2022-08-21 20:04] LABS: MANUAL DIFF FLAG NO
[2022-08-21 20:18] LABS: Basophils Percent Auto 0.5 % (0-2); Eosinophils Percent Auto 0.2 % (0-4); Hematocrit 39.6 % (42.0-52.0); Hemoglobin 13.3 g/dl (14.0-18.0); Imm Gran Abs Auto 0.01 X10*3/uL (0.00-0.03); Imm Gran Pct Auto 0.2 % (0.0-0.4); Lymphocytes Absolute Auto 1.3 X10*3/uL (1.2-4.9); Lymphocytes Percent Auto 31.3 % (20-40); Mean Corpuscular HGB Conc 33.6 g/dl (31.0-36.0); Mean Corpuscular Hemoglobin 30.4 pg (27.0-33.0); Mean Corpuscular Volume 90.4 fL (80.0-98.0); Monocytes Absolute Auto 0.3 X10*3/uL (0.1-1.2); Monocytes Percent Auto 6.3 % (2-11); Neutrophils Absolute Auto 2.6 x10*3/uL (2.0-8.3); Neutrophils Percent Auto 61.5 % (45-73); Red Blood Count 4.38 X10*6/uL (4.60-5.80); Red Cell Distribution Width 12.6 % (11.0-16.0); White Blood Count 4.2 X10*3/uL (4.8-10.8)
[2022-08-21 20:20] LABS: INTERNATIONAL NORM RATIO 1.3 (0.9-1.1); Prothrombin Time 14.9 SEC (10.0-13.1)
[2022-08-21 20:25] LABS: Alanine Aminotransferase 11 U/L (0-40); Albumin Level 4.4 g/dL (3.5-5.0); Alkaline Phosphatase 47 U/L (39-117); Anion Gap 13 (12-20); Aspartate Amino Transferase 16 U/L (5-37); Bilirubin Total 0.4 mg/dL (0.0-1.0); Blood Urea Nitrogen 18 mg/dL (9-16); Calcium 9.2 mg/dL (8.4-10.2); Carbon Dioxide 28 mmol/L (22-29); Chloride 103 mmol/L (96-108); Estimated Glomerular Filt Rate > 60; Glucose Random 122 mg/dL (60-115); Potassium 4.1 mmol/L (3.3-5.1); Sodium 140 mmol/L (135-145); Total Protein 7.1 g/dL (6.5-8.0)
[2022-08-21 20:49] LABS: Platelet Count 90 X10*3/uL (160-400)
[2022-08-21 21:48] VITALS: BP 120/71; PULSE 62; RESP 16; TEMP 36.7; O2SAT 97
== END 2022-08-21 22:29 | disposition home or self-care (01) ==
PROVIDERS: Physician Assistant; Emergency Provider Internal Medicine
DX: R53.1 Weakness (principal); R25.3 Fasciculation; T43.225A Adverse effect of selective serotonin reuptake inhibitors, initial encounter; F11.20 Opioid dependence, uncomplicated; S06.0X1A Concussion with loss of consciousness of 30 minutes or less, initial encounter; W10.8XXA Fall (on) (from) other stairs and steps, initial encounter; D50.9 Iron deficiency anemia, unspecified; D72.819 Decreased white blood cell count, unspecified; Y93.89 Activity, other specified; Y92.538 Other ambulatory health services establishments as the place of occurrence of the external cause; Y99.9 Unspecified external cause status; Z20.822 Contact with and (suspected) exposure to COVID-19
CPT/HCPCS: 70450; 71250; 72125; 74176; 80053; 85025; 85610; 87635; 99283; 99284

== ENCOUNTER 2022-08-23 13:16 | Emergency (ER) | payer OTHER, SELFPAY ==
--- NOTE | ~2022-08-23 | XR_ITS ---
EXAMINATION: XR CHEST CLINICAL INFORMATION: Shortness of breath COMPARISON: CT chest dated 08/21/2022 TECHNIQUE: Frontal view of the chest was obtained. FINDINGS: Normal symmetric lung volumes. No parenchymal consolidation. No pleural effusion. No pneumothorax. Cardiomediastinal silhouette and pulmonary vascularity are within normal limits. No acute osseous abnormalities. XR/XR chest 1V IMPRESSION: Clear lungs
--- NOTE | ~2022-08-23 | CT_ITS ---
EXAMINATION: CT HEAD WITHOUT CONTRAST CLINICAL INFORMATION: Syncope COMPARISON: 08/21/2022 TECHNIQUE: Contiguous axial imaging was performed from the skull base to vertex without intravenous administration of contrast. This CT examination was performed using dose optimization techniques as appropriate, variously including the following: *Automated exposure control *Adjustment of mA and/or kV according to patient size (this includes techniques or standardized protocols for targeted exams where dose is matched to indication/reason for exam; i.e. extremities or head) *Use of iterative reconstruction technique DLP: 619 mGy-cm FINDINGS: No intra or extra-axial fluid collection or hemorrhage, mass or mass effect. Sulci and ventricles appear unremarkable. Calvarium intact. CT/CT head/brain wo IV con IMPRESSION: No acute intracranial pathology.
[2022-08-23 13:20] VITALS: BP 126/72; PULSE 66; RESP 16; TEMP 36.6; O2SAT 98; BMI 24.3
--- NOTE | 2022-08-23 13:32 | ECG_ITS ---
Test Reason : syncope Blood Pressure : / mmHG Vent. Rate : 059 BPM Atrial Rate : 059 BPM P-R Int : 158 ms QRS Dur : 098 ms QT Int : 374 ms P-R-T Axes : 041 090 074 degrees QTc Int : 370 ms Sinus bradycardia Rightward axis ST elevation in Inferior leads Abnormal ECG No previous ECGs available Referred By: Thelma Boudreaux Electronically Signed By:KIMBER BISHOP MD
--- NOTE | 2022-08-23 13:33 | ED.HEATRA ---
HPI - Head Injury General Chief complaint: Head Injury Stated complaint: Dizzy Headache S/P Concussion 08/21/22 Time Seen by Provider: 08/23/22 13:31 Source: patient and old records reviewed History of Present Illness HPI Narrative: 42-year-old male with history of former substance abuse on Suboxone, liver cirrhosis, depression, GERD presents to the ER for evaluation of recurrent syncope, dizziness and lightheadedness after he was diagnosed with a concussion 2 days ago. Patient was seen in the ER on 08/21 for evaluation after his legs gave out and he fell down a flight of 15 stairs inside of his home. He had a normal examination, normal CT of his head and neck and unremarkable lab workup. He was discharged with diagnosis of concussion. Patient reports mild, constant headache since then. Yesterday he was standing, washing the dishes when he all the sudden felt lightheaded, dizzy and unwell. He states the next thing he knows he was on the floor and he passed out. He thinks it was brief. He denies any injuries from this. He states he spent the rest of the day in bed and resting. Whenever he would sit up or stand up he would feel lightheaded or dizzy. Today he went from sitting on his bed to walk to the bathroom and he passed out after he stood up. He was dizzy prior to this. He also reports being dizzy and lightheaded when he was standing at his dresser a while later. He called his doctor who told him to come to the ER for re-evaluation. Patient denies any chest pain. He reports mild shortness of breath. He reports his low back is aching and his muscles in his legs are also tender. He denies history of syncope in the past. No drug or alcohol use in the last 10 years. He is on stable doses of Suboxone and gabapentin. He does admit to decreased p.o. intake and hydration last couple of days but he has eat and drink and some. Complaint: head injury and fall Onset (ago): day(s) (1) Mechanism of Injury: fall and other (Syncope) Place: home Loss of Consciousness: yes Severity: moderate Quality: aching Radiation: none Other Injuries: back and lower extremity Associated symptoms: nausea, vertigo and syncope Related Data Allergies Allergy/AdvReac Type Severity Reaction Status Date / Time clindamycin Allergy Anaphylaxis Verified 08/23/22 13:20 Penicillins [PCN] Allergy Unknown Verified 08/23/22 13:20 Review of Systems Review of Systems: Constitutional: No Fever, No Chills ENT/Mouth: No sore throat, No Rhinorrhea, No Swallowing Difficulty Eyes: No Eye Pain, No Swelling, No Redness, No vision changes Cardiovascular: No Chest Pain, + SOB, No Orthopnea, No Edema Respiratory: No Cough, No Sputum, No Wheezing, No dyspnea Gastrointestinal: No Nausea, No Vomiting, No Diarrhea, No abdominal Pain Genitourinary: No Dysuria, No Urinary Frequency, No Hematuria Musculoskeletal: No joint pain, + Myalgias Skin: No Skin Lesions, No rash Neuro: No Weakness, No Numbness, + Dizziness, + Headache Psych: + Anxiety/Panic, No Depression Heme/Lymph: No Bruising, No Lymphadenopathy PMFSH Social History Social History Advance Directives: No Advance Directives Information Provided: Yes Physical Exam Vital Signs: Vital Signs: Last Vital Signs Temp 98.2 F 08/23/22 16:33 Pulse 78 08/23/22 16:33 Resp 16 08/23/22 16:33 BP 115/64 08/23/22 16:33 Pulse Ox 99 08/23/22 16:33 O2 Del Method 08/23/22 16:33 BMI result Body Mass Index 24.3 Appearance: Alert. Oriented X3. No acute distress. Eyes: Pupils equal, round and reactive to light. ENT: Pharynx normal. Neck: Normal inspection. Neck supple. No midline tenderness. Normal range of motion. CVS: Normal heart rate and rhythm. Pulses normal. Respiratory: No respiratory distress. Breath sounds normal. Abdomen: Soft and nontender. +BS x4 Back: No midline tenderness. No flank ecchymosis. Normal range of motion. Skin: Skin warm and dry. Normal skin color. Normal skin turgor. No rashes. Extremities: No lower extremity edema. Atraumatic x4. Neuro: Oriented X 3. No motor deficit. No sensory deficit. Steady gait. Course Course Course Narrative: 42-year-old male with a history of substance abuse on Suboxone, liver cirrhosis, depression, GERD who presents to the ER for evaluation of syncope x2 and dizziness after he was diagnosed with a concussion 2 days ago. Does not seem to be cardiac etiology. Most likely related to his concussion and dizziness. Will check EKG, orthostatics vital signs, lab workup including troponin. Will repeat his head CT as well. Dispo pending results and improvement. Reevaluation(s) Reevaluation #1: CT scan of his head is unremarkable. EKG unremarkable. Labs unremarkable. Patient is feeling better, tolerating oral fluids. His orthostatic vital signs are positive with a decrease in his blood pressure 125 systolic to 105 systolic from lying to standing. Did not have severe symptoms at that time. Plan was for IV placement and IV fluids however patient reports he is an incredibly difficult stick and would like to hold off on an IV if possible. He has just drinking a L and half of fluids. Will repeat his orthostatic vital signs Reevaluation #2: Repeat orthostatics are negative. Patient is feeling better. We discussed the results of his workup today. Comfortable with discharge home with outpatient follow-up. Patient agrees with plan. Stable for DC MDM - Head Injury Medical Records Attestation: I reviewed the patient's medical records. Lab Data Attestation: I reviewed the patient's lab results. Result diagrams: 08/23/22 15:01 08/23/22 15:01 Labs: Lab Results 08/23/22 08/23/22 08/23/22 Range/Units 15:01 15:01 15:01 WBC 6.0 (4.8-10.8) X10*3/uL RBC 4.84 (4.60-5.80) X10*6/uL Hgb 14.5 (14.0-18.0) g/dl Hct 44.1 (42.0-52.0) % MCV 91.1 (80.0-98.0) fL MCH 30.0 (27.0-33.0) pg MCHC 32.9 (31.0-36.0) g/dl RDW 12.6 (11.0-16.0) % Plt Count 97 L (160-400) X10*3/uL MPV 11.4 (9.4-12.4) fL Immature Gran % (Auto) 0.2 (0.0-0.4) % Neut % (Auto) 69.5 (45-73) % Lymph % (Auto) 23.1 (20-40) % [place] % (Auto) 6.7 (2-11) % Eos % (Auto) 0.2 (0-4) % Baso % (Auto) 0.3 (0-2) % Lymph # (Auto) 1.4 (1.2-4.9) X10*3/uL [place] # (Auto) 0.4 (0.1-1.2) X10*3/uL Eos # (Auto) 0.0 (0.0-0.4) X10*3/uL Baso # (Auto) 0.0 (0.0-0.2) X10*3/uL Abs Immat Gran (auto) 0.01 (0.00-0.03) X10*3/uL Absolute Neuts (auto) 4.2 (2.0-8.3) x10*3/uL Absolute Nucleated RBC 0.000 (0.0-0.012) X10*3/uL Nucleated RBC % (auto) 0.0 (0.0-0.2) /100WBC Sodium 141 (135-145) mmol/L Potassium 4.3 (3.3-5.1) mmol/L Chloride 100 (96-108) mmol/L Carbon Dioxide 30 H (22-29) mmol/L Anion Gap 15 (12-20) BUN 19 H (9-16) mg/dL Creatinine 0.90 (0.5-1.4) mg/dL Estim Creat Clear Calc 105.5 Estimated GFR > 60 Random Glucose 87 (60-115) mg/dL Calcium 9.7 (8.4-10.2) mg/dL Total Creatine Kinase (38-174) U/L Troponin I High Sens < 3.5 (<3.5-35.0) ng/L 08/23/22 Range/Units 15:01 WBC (4.8-10.8) X10*3/uL RBC (4.60-5.80) X10*6/uL Hgb (14.0-18.0) g/dl Hct (42.0-52.0) % MCV (80.0-98.0) fL MCH (27.0-33.0) pg MCHC (31.0-36.0) g/dl RDW (11.0-16.0) % Plt Count (160-400) X10*3/uL MPV (9.4-12.4) fL Immature Gran % (Auto) (0.0-0.4) % Neut % (Auto) (45-73) % Lymph % (Auto) (20-40) % [place] % (Auto) (2-11) % Eos % (Auto) (0-4) % Baso % (Auto) (0-2) % Lymph # (Auto) (1.2-4.9) X10*3/uL [place] # (Auto) (0.1-1.2) X10*3/uL Eos # (Auto) (0.0-0.4) X10*3/uL Baso # (Auto) (0.0-0.2) X10*3/uL Abs Immat Gran (auto) (0.00-0.03) X10*3/uL Absolute Neuts (auto) (2.0-8.3) x10*3/uL Absolute Nucleated RBC (0.0-0.012) X10*3/uL Nucleated RBC % (auto) (0.0-0.2) /100WBC Sodium (135-145) mmol/L Potassium (3.3-5.1) mmol/L Chloride (96-108) mmol/L Carbon Dioxide (22-29) mmol/L Anion Gap (12-20) BUN (9-16) mg/dL Creatinine (0.5-1.4) mg/dL Estim Creat Clear Calc Estimated GFR Random Glucose (60-115) mg/dL Calcium (8.4-10.2) mg/dL Total Creatine Kinase 74 (38-174) U/L Troponin I High Sens (<3.5-35.0) ng/L ECG Data Attestation: I personally reviewed and interpreted this ECG as follows: ECG interpretation date: 08/23/22 ECG interpretation time: 14:00 Prior ECG tracings: available for review Interpretation: Sinus bradycardia, ventricular rate 59 beats per minute, normal MA interval, normal QRS, normal QTC, no ST segment elevations or depressions. Discharge Plan Discharge Clinical Impression: Syncopal episodes, Closed head injury Patient Disposition: Home, Self-Care Instructions: Syncope (ED), Head Injury (ED) Additional Instructions: Your workup today was unremarkable. Recommend rest, drink plenty of fluids. When changing positions make sure to do so slowly and give your body time to equilibrate. Follow-up with your primary care doctor.
[2022-08-23 15:05] LABS: MANUAL DIFF FLAG NO
[2022-08-23 15:12] LABS: Basophils Percent Auto 0.3 % (0-2); Eosinophils Percent Auto 0.2 % (0-4); Hematocrit 44.1 % (42.0-52.0); Hemoglobin 14.5 g/dl (14.0-18.0); Imm Gran Abs Auto 0.01 X10*3/uL (0.00-0.03); Imm Gran Pct Auto 0.2 % (0.0-0.4); Lymphocytes Absolute Auto 1.4 X10*3/uL (1.2-4.9); Lymphocytes Percent Auto 23.1 % (20-40); Mean Corpuscular HGB Conc 32.9 g/dl (31.0-36.0); Mean Corpuscular Volume 91.1 fL (80.0-98.0); Mean Platelet Volume 11.4 fL (9.4-12.4); Monocytes Absolute Auto 0.4 X10*3/uL (0.1-1.2); Monocytes Percent Auto 6.7 % (2-11); Neutrophils Absolute Auto 4.2 x10*3/uL (2.0-8.3); Neutrophils Percent Auto 69.5 % (45-73); Red Blood Count 4.84 X10*6/uL (4.60-5.80); Red Cell Distribution Width 12.6 % (11.0-16.0)
[2022-08-23 15:13] LABS: Platelet Count 97 X10*3/uL (160-400)
[2022-08-23 15:28] LABS: Anion Gap 15 (12-20); Blood Urea Nitrogen 19 mg/dL (9-16); Calcium 9.7 mg/dL (8.4-10.2); Carbon Dioxide 30 mmol/L (22-29); Chloride 100 mmol/L (96-108); Creatinine Clr Calc Pharmacy 105.5; Estimated Glomerular Filt Rate > 60; Glucose Random 87 mg/dL (60-115); Potassium 4.3 mmol/L (3.3-5.1); Sodium 141 mmol/L (135-145)
[2022-08-23 15:31] LABS: Troponin-I High Sensitivity < 3.5 ng/L (<3.5-35.0)
[2022-08-23 15:44] VITALS: BP 123/65; BP 125/65; PULSE 63; PULSE 66
[2022-08-23 15:45] VITALS: BP 105/59; BP 123/65; PULSE 66; PULSE 83; RESP 18; O2SAT 98
[2022-08-23 16:33] VITALS: BP 115/64; PULSE 78; RESP 16; TEMP 36.8; O2SAT 99
== END 2022-08-23 16:43 | disposition home or self-care (01) ==
PROVIDERS: Physician Assistant; Emergency Provider Emergency Medicine Emergency Medical Services; PCP Internal Medicine
DX: F07.81 Postconcussional syndrome (principal); R55 Syncope and collapse; R42 Dizziness and giddiness; R51.9 Headache, unspecified; Z79.899 Other long term (current) drug therapy
CPT/HCPCS: 36415; 70450; 71045; 80048; 82550; 84484; 85025; 93005; 99283; 99284